=== PATIENT | male | born 1980 | race Caucasian/White ===

== ENCOUNTER → 2016-03-22 | Outpatient (REF) | payer OTHER ==
[~2016-03-22] MED LIST: ALBU17IN INH; CEPA5.4L2 MT; PANT40TA2 PO; RANI150T PO; TYLE500T78 PO; ZOFR20TA PO
[2016-03-22 13:02] LABS: BASO % 0.3 % (0.0-1.0); EOS # 0.1 K/mm3 (0.0-0.50); EOS % 0.7 % (0.0-3.0); LARGE UNSTAINED CELL # 0.1 K/mm3 (0.0-0.4); LARGE UNSTAINED CELL % 0.6 % (0.0-4.0); LYMPH # 1.3 K/mm3 (1.5-4.5); MEAN CORPUSCULAR HEMOGLOBIN 30.9 pg (27.0-33.0); MEAN CORPUSCULAR HGB CONC 35.2 g/dl (32.0-36.5); MEAN CORPUSCULAR VOLUME 87.7 fl (80.0-96.0); MONO # 0.7 K/mm3 (0.0-0.8); MONO % 3.8 % (0.0-5.0); NEUTROPHILS # 16.4 K/mm3 (1.8-7.7); NEUTROPHILS % 87.7 % (36.0-66.0); PLATELET COUNT, AUTOMATED 309 k/mm3 (150-450); RED CELL DISTRIBUTION WIDTH 12.8 % (11.5-14.5); WHITE BLOOD COUNT 18.7 K/mm3 (4.0-10.0)
[2016-03-22 13:21] LABS: ALBUMIN 4.7 GM/DL (3.2-5.2); ALBUMIN/GLOBULIN RATIO 1.57 (1.00-1.93); BILIRUBIN,TOTAL 0.7 MG/DL (0.2-1.0); CALCIUM LEVEL 9.2 MG/DL (8.5-10.1); CREATININE FOR GFR 1.48 MG/DL (0.70-1.30); GLOMERULAR FILTRATION RATE 57.9 (>60); POTASSIUM SERUM 3.9 MEQ/L (3.5-5.1); TOTAL PROTEIN 7.7 GM/DL (6.4-8.2)
== END ==
LOC: M LAB REF 12:45
PROVIDERS: ATTEND Surgery
DX: K29.20 Alcoholic gastritis without bleeding (principal)

== ENCOUNTER 2016-03-24 19:12 | Inpatient (IN) | payer OTHER ==
[~2016-03-24] VITALS: Ht 165.1 cm; Wt 78.0 kg
[2016-03-24] MEDS ORDERED: PANTOPRAZOLE 40MG INJ (PROTONIX) (C9113) As Ordered ONE (19:34)
[2016-03-24] MEDS ORDERED: PROMETHAZINE INJ 25 MG/ML VIAL (J2550) As Ordered ONE (19:34)
[2016-03-24 19:59] LABS: BASO # 0.1 K/mm3 (0.0-0.2); BASO % 0.4 % (0.0-1.0); EOS # 0.1 K/mm3 (0.0-0.50); EOS % 0.5 % (0.0-3.0); LARGE UNSTAINED CELL # 0.2 K/mm3 (0.0-0.4); LYMPH # 1.4 K/mm3 (1.5-4.5); LYMPH % 8.7 % (24.0-44.0); MEAN CORPUSCULAR HEMOGLOBIN 30.7 pg (27.0-33.0); MEAN CORPUSCULAR HGB CONC 35.6 g/dl (32.0-36.5); MEAN CORPUSCULAR VOLUME 86.3 fl (80.0-96.0); MONO # 0.8 K/mm3 (0.0-0.8); MONO % 4.6 % (0.0-5.0); NEUTROPHILS # 14.1 K/mm3 (1.8-7.7); NEUTROPHILS % 84.9 % (36.0-66.0); PLATELET COUNT, AUTOMATED 299 k/mm3 (150-450); RED CELL DISTRIBUTION WIDTH 12.6 % (11.5-14.5); WHITE BLOOD COUNT 16.6 K/mm3 (4.0-10.0)
[2016-03-24 20:18] LABS: ALBUMIN 4.6 GM/DL (3.2-5.2); ALBUMIN/GLOBULIN RATIO 1.48 (1.00-1.93); ALKALINE PHOSPHATASE 80 U/L (45-117); ALT/SGPT 52 U/L (12-78); ANION GAP 14 MEQ/L (8-16); AST/SGOT 19 U/L (15-37); BILIRUBIN,DIRECT 0.3 MG/DL (0.0-0.2); BLOOD UREA NITROGEN 18 MG/DL (7-18); CALCIUM LEVEL 9.1 MG/DL (8.5-10.1); CARBON DIOXIDE LEVEL 24 MEQ/L (21-32); CHLORIDE LEVEL 106 MEQ/L (98-107); CREATININE FOR GFR 1.37 MG/DL (0.70-1.30); GLOMERULAR FILTRATION RATE > 60.0 (>60); GLUCOSE, FASTING 151 MG/DL (70-105); SODIUM LEVEL 144 MEQ/L (136-145); TOTAL PROTEIN 7.7 GM/DL (6.4-8.2)
[2016-03-24 21:23] LABS: CALCIUM OXALATE CRYSTALS SMALL
[2016-03-24] MEDS ORDERED: SUCRALFATE 1 GM TAB As Ordered ONE (21:47)
[2016-03-24] MEDS ORDERED: GASTROGRAFIN SOLUTION 30ML (Q9963) As Ordered ONE (22:07)
[2016-03-24] MEDS ORDERED: CHLORASEPTIC SPRAY MT ONE (22:15)
[2016-03-24] MEDS ORDERED: METOCLOPRAMIDE INJ 10MG/2ML VIAL (J2765) As Ordered ONE (23:11)
[2016-03-24] MEDS ORDERED: ISOVUE-370 76% 100ML VIAL (Q9967) As Ordered ONE (23:50)
--- NOTE | 2016-03-25 00:40 | REPUSA ---
CT of the abdomen and pelvis with contrast Clinical statement: vomiting blood. Technique: Multiple axial CT images were obtained from the base of the lungs through the floor of the pelvis utilizing 5 mm axial slices after administration of oral and nonionic intravenous contrast. C oronal and sagittal reconstructions were also obtained. No comparison is available. Findings: Chest: The visualized lung bases are clear. Abdomen: The spleen, pancreas, kidneys, gallbladder, and adrenal glands are unremarkable. Diffuse low attenuation of the liver is appreciated. The aorta is within normal limits. There is no evidence of abdominal lymphadenopathy or ascites. Pelvis: The bowel is unremarkable, with no obstructive or inflammatory changes. The appendix is daniel l. The urinary bladder is within normal limits. The other pelvic structures appear grossly intact. Th ere is no evidence of pelvic lymphadenopathy or ascites. Bones: There are no suspicious osseous abnormalities seen. Impression: No acute abnormality. Fatty infiltration of the liver.
[2016-03-25] MEDS ORDERED: ONDANSETRON 4MG/2ML VIAL (J2405) IV PRN ×2 (02:30→12:00)
[2016-03-25] MEDS ORDERED: NS 1,000 ML IV SCH (02:45)
[2016-03-25] MEDS ORDERED: TYLE500T78 PO (02:51)
[2016-03-25] MEDS ORDERED: RANI150T PO (02:51)
[2016-03-25] MEDS ORDERED: ALBU17IN INH (02:51)
[2016-03-25] MEDS ORDERED: ZOFR20TA PO (02:51)
[2016-03-25] MEDS ORDERED: LIDOCAINE VISCOUS 2% SOLN 15ML UDC As Ordered ONE (03:32)
--- NOTE | 2016-03-25 04:10 | HPE ---
DATE OF ADMISSION: 03/25/2016 PRIMARY CARE PROVIDER: Dr. Díaz. CHIEF COMPLAINT: Hematemesis. HISTORY OF PRESENT ILLNESS: Mr. Meier is a 35-year-old male with past medical history of upper gastrointestinal (GI) bleed, occasional alcohol use, who presented to the emergency department (ED) [facility] with complaint of hematemesis in the last 2 days. Episode started 2 days ago while he was eating. He then immediately vomited his food and also saw spoons of blood mixed. He then presented to urgent care and because he did not mention any hematemesis, he was then given Zofran and sent home. However, at 5 p.m. yesterday afternoon while eating chicken noodle soup, he started having coffee-ground emesis that filled up the whole toilet bowl. He states that the episode was going on straight for 4-5 hours. Associated with dizziness, lightheadedness, had one syncopal episode 3 days ago, abdominal pain. No chest pain, palpitations, diarrhea, constipation. Bowel movements have been normal. Takes 1-2 tablets of Aleve every day for his sore throat. Had similar episode approximately a year ago. At that time, states that he was drinking too much. He then presented to [facility] and was treated with omeprazole and intravenous (IV) fluid and discharged home. Never saw a copy center associate. On average, drinks approximately 6-7 cans of beer every 2 weeks. In the ED, received 2 liters bolus, promethazine 25 mg times one, Protonix 80 times one, Carafate 1 gram, Cepacol spray, metoclopramide 10 mg times one. PAST MEDICAL HISTORY: 1. Asthma. 2. Depression. 3. Schizophrenia. 4. Anxiety. 5. GI bleed. PAST SURGICAL HISTORY: Bilateral inguinal hernia repair. ALLERGIES: MUSHROOMS and MEASLES, MUMPS, RUBELLA VACCINE, reaction is coma. HOME MEDICATIONS: - Tylenol 1000 mg every 6 hours as needed - Ventolin two puffs inhaled every 4 hours as needed - Zofran 4 mg every 8 hours - ranitidine 150 mg by mouth daily SOCIAL HISTORY: Patient is an ex-smoker for a total of 7 years. Quit last year. Alcohol drinks up to seven cans of beer every 2 weeks. Uses marijuana. Currently lives at home. No pets. Attending school. FAMILY HISTORY: Mother with diabetes, hypothyroidism, hypertension. Father with myocardial infarction ([place]), skin cancer. REVIEW OF SYSTEMS: CONSTITUTIONAL: Decreased appetite due to nausea. Intermittent subjective fevers, chills. No rigors, weight changes. HEENT: Positive for lightheadedness, dizziness. No problems with difficulty with speech and swallow. CARDIOVASCULAR: Denies chest pain, paroxysmal nocturnal dyspnea, pillow orthopnea, lower extremity edema. PULMONARY: Positive for shortness of breath after excessive amount of vomiting. No hemoptysis. Has been coughing more clear phlegm. GASTROINTESTINAL: Positive for GI bleed as mentioned above, abdominal pain. GENITOURINARY: No urinary complaints or hematuria. MUSCULOSKELETAL: No bone, muscle, joint pain. NEUROLOGICAL: No paralysis, paresthesia, headaches. ENDOCRINE: Negative for diabetes, or thyroid disease. LYMPHATICS: No lumps, bumps, or swelling anywhere in neck, axilla, or groin. HEMATOLOGY: No abnormal bleeding or bruising. PSYCHIATRIC: Positive for anxiety, depression, schizophrenia. PHYSICAL EXAMINATION: VITAL SIGNS: Blood pressure 142/94, heart rate 93, respiration rate 18, pulse oximetry 100% on room air, temperature 98.5. Body mass index (BMI) is 30. GENERAL: The patient is lying in bed, comfortable, no acute distress. Alert, awake, oriented times three, pleasant and cooperative, no acute respiratory or psychiatric distress. HEENT: Normocephalic, atraumatic. Moist oral mucosa. NECK: Supple. Trachea midline. No jugular venous distention (JVD). CHEST: Symmetric chest rise. No accessory muscle use. Breath sounds clear to auscultation bilaterally. HEART: Regular rate and rhythm, S1, S2 present. ABDOMEN: Mildly tender to palpation in right lower quadrant. No guarding. No rebound. No peritoneal signs. BACK: No costovertebral angle (CVA) tenderness. : Rectal exam without external hemorrhoids. Hemoccult positive. EXTREMITIES: No pedal edema. Pedal pulses present bilaterally. PSYCHIATRIC: Pleasant, cooperative. LABORATORY DATA: WBC 16.6, hemoglobin 14.6, hematocrit 41.6 decreased to 13.3, MCV is 86.3, platelets 299. Sodium 144, potassium 3, chloride 106, carbon dioxide 24, BUN 18, creatinine 1.37, glucose 151, calcium 9.1, total bilirubin 1, AST 19, ALT 52, alkaline phosphatase 80, lipase 74. Urinalysis 2+ protein, 2+ ketones, [address] abdomen and pelvis with contrast unremarkable bowel, no obstruction or inflammatory changes. Normal appendix. No pelvic lymphadenopathy or ascites. No suspicious osseous abnormalities. No acute changes. Positive for fatty infiltration of the liver. IMPRESSION AND PLAN: Mr. Meier is a 35-year-old male with a past medical history of gastrointestinal (GI) bleed, presented with complaint of hematemesis and coffee-ground emesis. 1. Upper GI bleed. Likely secondary to alcohol use and nonsteroidal antiinflammatory drug (NSAID) use. Check coagulation studies. Trend hemoglobin , hematocrit every 6 hours. Start Protonix by mouth twice a day. Continue supportive symptom control with Zofran every 6 hours as needed. Patient will be made nothing by mouth and start intravenous (IV) fluid hydration at 100 mL/h. Will consult gastroenterology in the morning. 2. Leukocytosis. Likely secondary to inflammatory response from GI bleed. Continue to monitor for now. Recheck blood work in the morning. 3. Anemia. Secondary to GI bleed as mentioned above. Continue to trend the hemoglobin, hematocrit. Transfuse as needed. Has consent in place. 4. Acute kidney injury (VIVIAN). Likely secondary to blood loss and NSAID use. Hold NSAID medications. IV fluid hydration. 5. Hypokalemia. Check magnesium level and replete with IV potassium supplementation. 6. Abnormal CT. The CT shows evidence of fatty infiltration of the liver. Will benefit from weight loss to prevent further progression of liver disease in the future. 7. Deep venous thrombosis (DVT) prophylaxis. Sequential compression devices (SCDs), thromboembolism deterrents (TEDs). No pharmacological intervention secondary to active GI bleed. DISPOSITION: Due to the patient's condition, we expect his stay to be greater than two midnights. My preceptor for this patient encounter was Dr. Rian Carr. The preceptor was physically present in the building during the encounter and was fully available as needed. All aspects of the patient interview, examination, medical decision making process, and medical care plan development were reviewed and approved by the preceptor. The preceptor is aware and concurs with the plan as stated in the body of this note and will attest to such by his/her co-signature. CECI
--- NOTE | 2016-03-25 04:23 | EDDOCDS ---
Nurse's Notes [facility] Name: Derek Meier Age: 35 yrs Sex: Male : 1980 Arrival Date: 03/24/2016 Time: 19:12 Bed 15 Private MD: NONE Diagnosis: Gastrointestinal hemorrhage, unspecified Presentation: 03/24 19:18 Presenting complaint: EMS states: pt been vomiting dark and red blood since 5 pm. Mom koOliverio went over to check on pt and he was found in the bathroom hugging the toilet unable to get up and call anyone. Pt saw his primary 2 days ago for the same thing and was given Zofran with relief til tonight. Suicide/Homicide risk assessment- the patient denies having any suicidal and/or homicidal ideations and does not present with any other emotional, behavioral or mental health complaints. 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 Transition of care: patient was not received from another setting of care. Care prior to arrival: See EMS report. Medications administered prior to arrival: Zofran 8 mg Saline lock initiated. 19:18 Acuity: CARLOS Level 3 ko2 19:18 Method Of Arrival: Ambulance ko2 03/25 03:29 Adult Sepsis Screening: The patient does not have new or worsening altered mentation. ko2 Patient's respiratory rate is less than 22. Systolic blood pressure is greater than 100. Patient has a qSOFA score of 0- Negative Sepsis Screen. Triage Assessment: 03/24 19:27 General: Appears distressed, Behavior is cooperative. HIV screening NA for this visit ko2 Offered previously. The patient is triaged at the bedside. See Assessment in Nurses Notes section of ED record. Neurological: Level of Consciousness is awake, alert. Respiratory: Airway is patent. GI: Pt is actively vomiting. Derm: Skin is normal. Musculoskeletal: Range of motion intact in all extremities. Historical: - Allergies: mushrooms; MMR (Coma); - PMHx: Asthma; Depression; Schizophrenia; - PSHx: Hernia repair; - Social history: Smoking status: No barriers to communication noted, The patient speaks fluent Barbadian, Speaks appropriately for age. - Family history: Not pertinent. - : The pt / caregiver states he / she is not on anticoagulants. Home medication list is obtained from the patient. - Exposure Risk Screening:: None identified. Screenin:23 Screening information is obtained from the patient. Fall risk: No risks identified. ld5 Assistance ADL's: requires no assistance with activities of daily living. Abuse/DV Screen: The patient / caregiver reports he/she is: not in a situation that causes fear, pain or injury. Nutritional screening: No deficits noted. Advance Directives: There is no active DNR order. home support is adequate. Assessment: 19:27 General: See triage assesment. ko2 19:40 General: labs drawn for primary RN -- pt continues to be nauseated. RN to give meds.. ttb 19:50 General: Pt actively vomiting. Meds infusing. Call rios placed within reach. Pt unable ld5 to tolerate a full assessment at this time. Will continue to monitor. Respiratory: Airway is patent Respiratory effort is even, unlabored. GI: Reports. 20:22 General: Pt resting in bed with eyes closed. Family member at bedside. Fluids infusing. ld5 Will continue to monitor. 20:55 General: Pt reports decreased nausea. Reports pain to abdomen and throat. Pt requesting ld5 ice chips or water. This discussed with provider and NPO enforced at this time. Fluids infusing. Pt aware of need for urine specimen but states he has been having urinary issues for a year. Pt reports urinary frequency, "squirts all over the place", dark urine. Pt states "And I'm not sexually active so you can rule out STDs." Provider made aware. POC discussed with pt and family. Will continue to monitor. 21:52 General: Pt medicated per orders. Reports throat is "very sore". Fluids change to ld5 bolus. Will continue to monitor. 22:30 General: Pt given throat spray and contrast with instructions. Will continue to monitor.ld5 23:19 General: Smells of In to assess pt's tolerance of contrast. Refuses to drink the ld5 contrast due to pain in throat. Pt also requesting nausea medication. Provider made aware of pt's refusal of oral contrast and nausea. Pt medicated per orders. CT scan to be just IV contrast per provider. 23:21 General: Pt reports 8/10 abdominal pain and "my throat is definitely a 12". ld5 03/25 00:03 General: Pt returned from CT. Tolerated well. Requesting popsicles. NPO status pending ld5 CT results explained to pt. Call rios within reach and lights dimmed for comfort. 00:49 General: Pt sleeping. No apparent distress. Awaiting CT results. Will continue to ld5 monitor. 01:20 General: Pt requesting popsicles again. And again pt was made aware of NPO status ld5 pending CT results. 02:11 General: Hospitalist in to speak with pt. ld5 02:50 General: Pt laying comfortably in bed. No apparent distress. Aware of plan for ld5 admission. Will continue to monitor. 03:50 General: Appears in no apparent distress, comfortable. Respiratory: No deficits noted. ko2 Derm: Skin is normal. 03:55 GI: Bowel sounds present X 4 quads. Abd is soft. ko2 Vital Signs: 03/24 19:30 BP 142 / 94; Pulse 93; Resp 18; Temp 98.5; Pulse Ox 100% ; Weight 81.65 kg; Height 5 ko2 ft. 5 in. (165.10 cm); 23:14 BP 138 / 86 (auto/); Pulse 90; Resp 16; Temp 98.1; Pulse Ox 96% on R/A; Pain 8/10; ld5 03/25 02:47 BP 131 / 80 (auto/); Pulse 90; Resp 16; Temp 98; Pulse Ox 95% on R/A; ld5 03:28 BP 128 / 82; Pulse 88; Resp 16; Temp 98.2; Pulse Ox 96% ; Pain 3/10; ko2 03/24 19:30 Body Mass Index 29.95 (81.65 kg, 165.10 cm) ko2 Vitals: 03:28 Log In Time N/A - ambulance arrival. ko2 ED Course: 03/24 19:13 Patient visited by Caity August, Tafe Teacher. ml3 19:13 Patient moved to Waiting ml3 19:14 NONE is Private Physician. ml3 19:18 Patient moved to 15 ml3 19:20 Triage Initiated ko2 19:23 [facility]ocely[facility] Le[facility]. le 19:26 Patient visited by Jocelyne Leyva FNP. le 19:26 Patient visited by Jocelyne Leyva FNP. le 19:40 Basic Metabolic Profile Sent. ttb 19:40 CBC with Diff Sent. ttb 19:40 Lipase Sent. ttb 19:40 Liver Profile Sent. ttb 19:40 Type & Screen Sent. ttb 19:40 Maintain field IV. Dressing intact. Good blood return noted. Site clean & dry. Gauge & ttb site: 18LAC. Labs drawn. (by ED staff). 19:49 [facility] Payment Agreement was scanned into [employer] and attached to record. jp5 19:51 Patient visited by Elle Isabel RN. ld5 20:23 Patient visited by Elle Isabel RN. ld5 20:23 The patient / caregiver is instructed regarding the plan of care and ED course. ld5 Accompanied by Family Member, Patient has correct armband on for positive identification. Placed in gown. Bed in low position. Call light in reach. 21:15 Patient visited by Elle Isabel RN. ld5 21:53 Patient visited by Elle Isabel RN. ld5 22:44 Patient visited by Elle Isabel RN. ld5 23:21 Patient visited by Elle Isabel RN. ld5 03/25 00:04 Patient visited by Elle Isabel RN. ld5 00:49 Patient visited by Elle Isabel RN. ld5 00:54 CT ABD & PELVIS: IV and Oral Contrast Returned. EDMS 01:40 Patient visited by Elle Isabel RN. ld5 01:41 Patient visited by Elle Isabel RN. ld5 02:11 Patient visited by Elle Isabel RN. ld5 02:52 Patient visited by Elle Isabel RN. ld5 02:52 Rian Carr MD is Hospitalizing Provider. cs11 02:52 Sanjeev Brown DO is Attending Physician. cs11 03:29 No procedures done that require assistance. ko2 Administered Medications: 03/24 19:31 Drug: NS 0.9% 1000 ml [sodium chloride 0.9 % intravenous solution] Route: IV; Rate: ko2 bolus; Site: left antecubital; 21:12 Follow up: IV Status: Completed infusion; IV Intake: 1000ml ld5 19:47 Drug: pantoprazole 80 mg [pantoprazole 40 mg intravenous solution] Route: IV; Rate: ko2 bolus; Site: left antecubital; 19:47 Drug: Promethazine 25 mg [promethazine 25 mg/mL injection solution (1 mL)] Route: IVP; ko2 Site: left antecubital; 21:12 Follow up: Response: Nausea is decreased ld5 20:53 Drug: NS 0.9% 1000 ml [sodium chloride 0.9 % intravenous solution] Route: IV; Rate: 100 ld5 mL/hr; Site: left antecubital; 21:50 Follow up: Rate change 1000 mL/hr ld5 21:50 Drug: NS 0.9% 1000 ml [sodium chloride 0.9 % intravenous solution] Route: IV; Rate: ld5 bolus; Site: left antecubital; 23:32 Follow up: IV Status: Completed infusion; IV Intake: 1000ml ld5 21:51 Drug: Sucralfate 1 grams [sucralfate 1 gram tablet (1 tabs)] Route: PO; ld5 22:30 Drug: Cepacol Dual Relief [place] 5 %-33 % 1 applic Route: Mucous Membrane; ld5 22:30 Drug: Diatrizoate Meglumine & Sodium 10 ml [diatrizoate meglumine and diat.sodium 66 ld5 %-10 % oral solution (10 mL)] Route: PO; 23:11 Not Given (Patient Refused): Diatrizoate Meglumine & Sodium Liquid 10 ml PO once; mix ld5 in 290cc of water 23:18 Drug: Metoclopramide 10 mg [metoclopramide 5 mg/mL injection solution] Route: IV; Rate: ld5 40 mg/hr; Infused Over: 15 mins; Site: left antecubital; Intake: 21:12 IV: 1000.00ml; Total: 1000.00ml. ld5 23:32 IV: 1000.00ml; Total: 2000.00ml. ld5 Order Results: Lab Order: Basic Metabolic Profile; SPEC'M 03/24/16 19:36 Test: GLUCOSE, FASTING; Value: 151; Range: 70-105; Abnormal: Above high normal; Units: MG/DL; Status: F Test: BLOOD UREA NITROGEN; Value: 18; Range: 7-18; Units: MG/DL; Status: F Test: CREATININE FOR GFR; Value: 1.37; Range: 0.70-1.30; Abnormal: Above high normal; Units: MG/DL; Status: F Test: GLOMERULAR FILTRATION RATE; Value: > 60.0; Range: >60; Status: F Test: SODIUM LEVEL; Value: 144; Range: 136-145; Units: MEQ/L; Status: F Test: POTASSIUM SERUM; Value: 3.0; Range: 3.5-5.1; Units: MEQ/L; Status: F Test: CHLORIDE LEVEL; Value: 106; Range: 98-107; Units: MEQ/L; Status: F Test: CARBON DIOXIDE LEVEL; Value: 24; Range: 21-32; Units: MEQ/L; Status: F Test: ANION GAP; Value: 14; Range: 8-16; Units: MEQ/L; Status: F Test: CALCIUM LEVEL; Value: 9.1; Range: 8.5-10.1; Units: MG/DL; Status: F Test Note: ; Units are mL/min/1.73 m2 Chronic Kidney Disease Staging per NKF: Stage I & II GFR >=60 Normal to Mildly Decreased Stage III GFR 30-59 Moderately Decreased Stage IV GFR 15-29 Severely Decreased Stage V GFR <15 Very Little GFR Left ESRD GFR <15 on INVESTIGATIVE SHOPPER Lab Order: CBC with Diff; SPEC'M 03/24/16 19:36 Test: WHITE BLOOD COUNT; Value: 16.6; Range: 4.0-10.0; Abnormal: Above high normal; Units: K/mm3; Status: F Test: RED BLOOD COUNT; Value: 4.83; Range: 4.30-6.10; Units: M/mm3; Status: F Test: HEMOGLOBIN; Value: 14.8; Range: 14.0-18.0; Units: g/dl; Status: F Test: HEMATOCRIT; Value: 41.6; Range: 42.0-52.0; Abnormal: Below low normal; Units: %; Status: F Test: MEAN CORPUSCULAR VOLUME; Value: 86.3; Range: 80.0-96.0; Units: fl; Status: F Test: MEAN CORPUSCULAR HEMOGLOBIN; Value: 30.7; Range: 27.0-33.0; Units: pg; Status: F Test: MEAN CORPUSCULAR HGB CONC; Value: 35.6; Range: 32.0-36.5; Units: g/dl; Status: F Test: RED CELL DISTRIBUTION WIDTH; Value: 12.6; Range: 11.5-14.5; Units: %; Status: F Test: PLATELET COUNT, AUTOMATED; Value: 299; Range: 150-450; Units: k/mm3; Status: F Test: NEUTROPHILS %; Value: 84.9; Range: 36.0-66.0; Abnormal: Above high normal; Units: %; Status: F Test: LYMPH %; Value: 8.7; Range: 24.0-44.0; Abnormal: Below low normal; Units: %; Status: F Test: MONO %; Value: 4.6; Range: 0.0-5.0; Units: %; Status: F Test: EOS %; Value: 0.5; Range: 0.0-3.0; Units: %; Status: F Test: BASO %; Value: 0.4; Range: 0.0-1.0; Units: %; Status: F Test: LARGE UNSTAINED CELL %; Value: 1.0; Range: 0.0-4.0; Units: %; Status: F Test: NEUTROPHILS #; Value: 14.1; Range: 1.8-7.7; Abnormal: Above high normal; Units: K/mm3; Status: F Test: LYMPH #; Value: 1.4; Range: 1.5-4.5; Abnormal: Below low normal; Units: K/mm3; Status: F Test: MONO #; Value: 0.8; Range: 0.0-0.8; Units: K/mm3; Status: F Test: EOS #; Value: 0.1; Range: 0.0-0.50; Units: K/mm3; Status: F Test: BASO #; Value: 0.1; Range: 0.0-0.2; Units: K/mm3; Status: F Test: LARGE UNSTAINED CELL #; Value: 0.2; Range: 0.0-0.4; Units: K/mm3; Status: F Lab Order: Lipase; SPEC' 03/24/16 19:36 Test: LIPASE; Value: 74; Range: 73-393; Units: U/L; Status: F Lab Order: Liver Profile; SPEC' 03/24/16 19:36 Test: AST/SGOT; Value: 19; Range: 15-37; Units: U/L; Status: F Test: ALT/SGPT; Value: 52; Range: 12-78; Units: U/L; Status: F Test: ALKALINE PHOSPHATASE; Value: 80; Range: 45-117; Units: U/L; Status: F Test: BILIRUBIN,TOTAL; Value: 1.0; Range: 0.2-1.0; Units: MG/DL; Status: F Test: BILIRUBIN,DIRECT; Value: 0.3; Range: 0.0-0.2; Abnormal: Above high normal; Units: MG/DL; Status: F Test: TOTAL PROTEIN; Value: 7.7; Range: 6.4-8.2; Units: GM/DL; Status: F Test: ALBUMIN; Value: 4.6; Range: 3.2-5.2; Units: GM/DL; Status: F Test: ALBUMIN/GLOBULIN RATIO; Value: 1.48; Range: 1.00-1.93; Status: F Lab Order: Type & Screen; SPEC'M 03/24/16 19:36 Test: BLOOD TYPE; Value: B POS; Status: F Test: AB SCREEN (INDIRECT JOSIANE)GEL; Value: NEGATIVE; Status: F Lab Order: Urinalysis; SPEC'M 03/24/16 19:36 Test: APPEARANCE, URINE; Value: CLEAR; Range: CLEAR; Status: F Test: COLOR, URINE; Value: YELLOW; Range: YELLOW; Status: F Test: PH,URINE; Value: 6.0; Range: 5.0-9.0; Units: UNITS; Status: F Test: SPECIFIC GRAVITY URINE AUTO; Value: 1.033; Range: 1.002-1.035; Status: F Test: PROTEIN, URINE AUTO; Value: 2+; Range: NEGATIVE; Abnormal: Above high normal; Units: mg/dL; Status: F Test: GLUCOSE, URINE (UA) AUTO; Value: NEGATIVE; Range: NEGATIVE; Units: mg/dL; Status: F Test: KETONE, URINE AUTO; Value: 2+; Range: NEGATIVE; Abnormal: Above high normal; Units: mg/dL; Status: F Test: UROBILINOGEN, URINE AUTO; Value: 4.0; Range: 0.0-2.0; Abnormal: Above high normal; Units: mg/dL; Status: F Test: BILIRUBIN, URINE AUTO; Value: NEGATIVE; Range: NEGATIVE; Status: F Test: NITRITE, URINE AUTO; Value: NEGATIVE; Range: NEGATIVE; Status: F Test: LEUKOCYTE ESTERASE, URINE AUTO; Value: NEGATIVE; Range: NEGATIVE; Status: F Test: BLOOD, URINE BLOOD; Value: NEGATIVE; Range: NEGATIVE; Status: F Test: WBC, URINE AUTO; Value: 3; Range: 0-3; Units: /HPF; Status: F Test: RBC, URINE AUTO; Value: 2; Range: 0-3; Units: /HPF; Status: F Test: BACTERIA, URINE AUTO; Value: NEGATIVE; Range: NEGATIVE; Status: F Test: SQUAMOUS EPITHELIAL CELL UR AU; Value: 0; Range: 0-6; Units: /HPF; Status: F Test: MUCUS, URINE; Value: SMALL; Range: NEGATIVE; Status: F Test: HYALINE CAST, URINE AUTO; Value: 0; Range: 0-1; Units: /LPF; Status: F Test: CALCIUM OXALATE CRYSTALS; Value: SMALL; Range: NONE; Status: F Lab Order: HEMOGLOBIN & HEMATOCRIT; SPEC'M 03/24/16 23:54 Test: HEMOGLOBIN; Value: 13.3; Range: 14.0-18.0; Abnormal: Below low normal; Units: g/dl; Status: F Test: HEMATOCRIT; Value: 39.4; Range: 42.0-52.0; Abnormal: Below low normal; Units: %; Status: F Lab Order: PROTHROMBIN TIME PROFILE\\E\\INR; SPEC'M 03/24/16 19:36 Test: PROTHROMBIN TIME; Value: 13.3; Range: 12.3-14.5; Units: SECONDS; Status: F Test: INR; Value: 1.00; Status: F Test Note: ; THERAPUTIC HUMAN INR VALUES INDICATIONS NORMAL RANGES PROPHYLAXIS/TREATMENT OF: VENOUS THROMBOSIS 2.0-3.0 PULMONARY EMBOLISM 2.0-3.0 PREVENTION OF SYSTEMIC EMBOLISM FROM: TISSUE HEART VALVES 2.0-3.0 ACUTE MYOCARDIAL INFARCTION 2.0-3.0 VALVULAR HEART DISEASE 2.0-3.0 ATRIAL FIBRILLATION 2.0-3.0 MECHANICAL VALVES(HIGH RISK) 2.5-3.5 RECURRENT MYOCARDIAL INFARCTION 2.5-3.5 Radiology Order: CT ABD & PELVIS: IV and Oral Contrast Test: CT ABD & PELVIS: IV and Oral Contrast REASON FOR EXAMINATION: vomiting blood;Abd. Pain - Generalized, Nn-focal Exam; ; CT of the abdomen and pelvis with contrast; Clinical statement: vomiting blood.; Technique: Multiple axial CT images were obtained from the base of the lungs through the floor of the; pelvis utilizing 5 mm axial slices after administration of oral and nonionic intravenous contrast. C; oronal and sagittal reconstructions were also obtained.; No comparison is available.; Findings:; Chest: The visualized lung bases are clear.; Abdomen: The spleen, pancreas, kidneys, gallbladder, and adrenal glands are unremarkable. Diffuse low; attenuation of the liver is appreciated. The aorta is within normal limits. There is no evidence of; abdominal lymphadenopathy or ascites.; Pelvis: The bowel is unremarkable, with no obstructive or inflammatory changes. The appendix is daniel; l. The urinary bladder is within normal limits. The other pelvic structures appear grossly intact. Th; ere is no evidence of pelvic lymphadenopathy or ascites.; Bones: There are no suspicious osseous abnormalities seen.; Impression: No acute abnormality. Fatty infiltration of the liver.; ; Outcome: 03/25 02:52 Decision to Hospitalize by Provider. cs11 03:54 Discharge Assessment: Patient awake, alert and oriented x 3. No cognitive and/or ko2 functional deficits noted. Patient verbalized understanding of disposition instructions. patient administered narcotics - no. The following High Risk Discharge criteria are identified: None. Admitted to Med/Surg accompanied by tech, via stretcher, with chart. Condition: stable. CT Study completed. Property :Personal belongings accompany Pt. 04:07 Admission hand-off: Report Faxed Fax receipt verified by [facility]. ko2 04:23 Patient left the ED. ko2 Signatures: Dispatcher [employer] EDMS Caity August, Tafe Teacher Unit ml3 Jocelyne Leyva, Elle Garcia,RN RN ld5 Sanjeev Brown DO DO cs11 Pearl Morel RN RN ttb Ogden, Kari, RN RN ko2 Rafaela Wilson jp5 MTDD
--- NOTE | 2016-03-25 04:23 | EDDOCDS ---
Physician Documentation [facility] Name: Derek Meier Age: 35 yrs Sex: Male : 1980 Arrival Date: 03/24/2016 Time: 19:12 Bed 15 Private MD: NONE Disposition: 03/25/16 02:52 Hospitalization ordered by Rian Carr for Inpatient Admission. Preliminary diagnosis is Gastrointestinal hemorrhage, unspecified. - Bed requested for [address] [place]. - Status is Inpatient Admission. ko2 - Condition is Stable. - Problem is new. - Symptoms are unchanged. Historical: - Allergies: mushrooms; MMR (Coma); - PMHx: Asthma; Depression; Schizophrenia; - PSHx: Hernia repair; - Social history: Smoking status: No barriers to communication noted, The patient speaks fluent Hebrew, Speaks appropriately for age. - Family history: Not pertinent. - : The pt / caregiver states he / she is not on anticoagulants. Home medication list is obtained from the patient. - Exposure Risk Screening:: None identified. Vital Signs: 03/24 19:30 BP 142 / 94; Pulse 93; Resp 18; Temp 98.5; Pulse Ox 100% ; Weight 81.65 kg / 180.01 ko2 lbs; Height 5 ft. 5 in. (165.10 cm); 23:14 BP 138 / 86 (auto/); Pulse 90; Resp 16; Temp 98.1; Pulse Ox 96% on R/A; Pain 8/10; ld5 03/25 02:47 BP 131 / 80 (auto/); Pulse 90; Resp 16; Temp 98; Pulse Ox 95% on R/A; ld5 03:28 BP 128 / 82; Pulse 88; Resp 16; Temp 98.2; Pulse Ox 96% ; Pain 3/10; ko2 03/24 19:30 Body Mass Index 29.95 (81.65 kg, 165.10 cm) ko2 MDM: 03/24 19:25 NS 0.9% 1000 ml IV at bolus once ordered. le 19:25 NS 0.9% 1000 ml IV at 100 mL/hr continuous ordered. le 19:25 IV Saline Lock ordered. le 19:25 Undress patient appropriately for examination ordered. le 19:25 pantoprazole 80 mg IV at bolus once ordered. le 19:26 Promethazine 25 mg IVP once; dilute and administer 30-60 minutes ordered. le 19:26 Type & Screen Ordered. EDMS 19:27 Basic Metabolic Profile Ordered. EDMS 19:27 CBC with Diff Ordered. EDMS 19:27 Lipase Ordered. EDMS 19:27 Liver Profile Ordered. EDMS 19:27 Urinalysis Ordered. EDMS 19:27 Abdomen, Flat\E\Upright,PA Chest Ordered. EDMS 19:27 NOTHING BY MOUTH+DIET ordered. EDMS 19:49 [facility] Payment Agreement was scanned into [employer] and attached to record. jp5 19:49 Financial registration complete. jp5 21:41 Basic Metabolic Profile Reviewed. le 21:41 CBC with Diff Reviewed. le 21:41 Liver Profile Reviewed. le 21:41 Urinalysis Reviewed. le 21:41 Lipase Reviewed. le 21:41 Type & Screen Reviewed. le 21:43 NS 0.9% 1000 ml IV at bolus once; 2nd liter please ordered. le 21:43 Fluid Challenge ordered. le 21:43 Sucralfate 1 grams PO once ordered. le 21:50 CT ABD & PELVIS: IV and Oral Contrast Ordered. EDMS 21:56 Cepacol Dual Relief [place] 5 %-33 % 1 applic Mucous Membrane once ordered. le 21:58 Diatrizoate Meglumine & Sodium Liquid 10 ml PO once; mix in 290cc of water ordered. ld5 21:58 Diatrizoate Meglumine & Sodium Liquid 10 ml PO once; mix in 290cc of water ordered. ld5 23:11 Metoclopramide 10 mg IV at 40 mg/hr once over 15 mins ordered. le 23:17 Redraw Labs ordered. le 23:18 Redraw Labs complete. ml3 23:20 HEMOGLOBIN & HEMATOCRIT Ordered. EDMS 03/25 00:46 HEMOGLOBIN & HEMATOCRIT Reviewed. cs11 01:24 CT ABD & PELVIS: IV and Oral Contrast Reviewed. cs11 01:28 BED REQUEST+ADM ordered. EDMS 02:32 NPO DIET ordered. EDMS 02:35 PROTHROMBIN TIME PROFILE\E\INR Ordered. EDMS 02:36 HEMOGLOBIN & HEMATOCRIT Ordered. EDMS 02:36 HEMOGLOBIN & HEMATOCRIT Ordered. EDMS 02:38 COMPLETE BLOOD COUNT Ordered. EDMS 02:39 RENAL PROFILE Ordered. EDMS 02:53 BED REQUEST+ADM ordered. EDMS 03:10 Admission / Observation Status ordered. EDMS 03:19 MAGNESIUM LEVEL Ordered. EDMS Administered Medications: 03/24 19:31 Drug: NS 0.9% 1000 ml [sodium chloride 0.9 % intravenous solution] Route: IV; Rate: ko2 bolus; Site: left antecubital; 21:12 Follow up: IV Status: Completed infusion; IV Intake: 1000ml ld5 19:47 Drug: pantoprazole 80 mg [pantoprazole 40 mg intravenous solution] Route: IV; Rate: ko2 bolus; Site: left antecubital; 19:47 Drug: Promethazine 25 mg [promethazine 25 mg/mL injection solution (1 mL)] Route: IVP; ko2 Site: left antecubital; 21:12 Follow up: Response: Nausea is decreased ld5 20:53 Drug: NS 0.9% 1000 ml [sodium chloride 0.9 % intravenous solution] Route: IV; Rate: 100 ld5 mL/hr; Site: left antecubital; 21:50 Follow up: Rate change 1000 mL/hr ld5 21:50 Drug: NS 0.9% 1000 ml [sodium chloride 0.9 % intravenous solution] Route: IV; Rate: ld5 bolus; Site: left antecubital; 23:32 Follow up: IV Status: Completed infusion; IV Intake: 1000ml ld5 21:51 Drug: Sucralfate 1 grams [sucralfate 1 gram tablet (1 tabs)] Route: PO; ld5 22:30 Drug: Cepacol Dual Relief [place] 5 %-33 % 1 applic Route: Mucous Membrane; ld5 22:30 Drug: Diatrizoate Meglumine & Sodium 10 ml [diatrizoate meglumine and diat.sodium 66 ld5 %-10 % oral solution (10 mL)] Route: PO; 23:11 Not Given (Patient Refused): Diatrizoate Meglumine & Sodium Liquid 10 ml PO once; mix ld5 in 290cc of water 23:18 Drug: Metoclopramide 10 mg [metoclopramide 5 mg/mL injection solution] Route: IV; Rate: ld5 40 mg/hr; Infused Over: 15 mins; Site: left antecubital; Signatures: Dispatcher [employer] EDMS Muna Duggan RN RN jan Lopresti, Mary-Elizabeth, Package Lift Operator Unit ml3 Jocelyne Leyva FNP FNP le Dickerson, Laura,RN RN ld5 Sanjeev Brown DO DO cs11 Alexandra Boyce,RN RN ko2 Rafaela Wilson jp5 The chart was reviewed and I authenticate all verbal orders and agree with the evaluation and treatment provided.Corrections: (The following items were deleted from the chart) 03/25 03:19 03:09 MAGNESIUM LEVEL ordered. EDMS EDMS 02:35 HEMOGLOBIN & HEMATOCRIT ordered. EDMS EDMS Attachments: 03/24 19:49 [facility] Payment Agreement jp5 MTDD
[2016-03-25 04:30] VITALS: BP_SYST 127; BP_SYST 135; BP_DIAS 64; BP_DIAS 87
[2016-03-25] MEDS: KCL 10MEQ IN 100ML SWI (KRUN) 10 MEQ in APPROPRIATE DILUENT 1 EA IV SCH ×6 (04:40→08:34)
[2016-03-25 06:00] VITALS: BP 140/72
[2016-03-25 06:03] LABS: MEAN CORPUSCULAR HEMOGLOBIN 29.9 pg (27.0-33.0); MEAN CORPUSCULAR VOLUME 88.1 fl (80.0-96.0); RED CELL DISTRIBUTION WIDTH 12.7 % (11.5-14.5); WHITE BLOOD COUNT 11.1 K/mm3 (4.0-10.0)
[2016-03-25 06:13] LABS: ALBUMIN 3.7 GM/DL (3.2-5.2); ANION GAP 8 MEQ/L (8-16); BLOOD UREA NITROGEN 16 MG/DL (7-18); CALCIUM LEVEL 8.1 MG/DL (8.5-10.1); CARBON DIOXIDE LEVEL 27 MEQ/L (21-32); CHLORIDE LEVEL 112 MEQ/L (98-107); GLOMERULAR FILTRATION RATE > 60.0 (>60); GLUCOSE, FASTING 94 MG/DL (70-105); MAGNESIUM LEVEL 1.9 MG/DL (1.8-2.4); PHOSPHORUS LEVEL 2.8 MG/DL (2.5-4.9); POTASSIUM SERUM 3.5 MEQ/L (3.5-5.1); SODIUM LEVEL 147 MEQ/L (136-145)
[2016-03-25] MEDS: CEPACOL LOZENGE PO PRN ×3 (08:39→17:49)
[2016-03-25] MEDS: PANTOPRAZOLE 40MG TAB (PROTONIX) PO SCH (09:00)
[2016-03-25] MEDS ORDERED: PANTOPRAZOLE 40MG INJ (PROTONIX) (C9113) IV SCH (09:00)
--- NOTE | 2016-03-25 10:44 | REP ---
Abdominal series: Three views. History: Hematemesis and abdominal pain. Comparison study is from May 27, 2015. Findings: Upright chest radiograph is normal. There is no evidence of infiltrate or free subdiaphragmatic air. Heart size is normal. Supine and erect views of the abdomen demonstrate a normal bowel gas pattern. No mass, organomegaly, or pathologic calcification is seen. Psoas margins and flank stripes are intact. No significant bony abnormality is seen. Impression: Negative abdominal series. Signed by Duncan Flores MD 03/25/2016 11:05 A
[2016-03-25] MEDS ORDERED: ALBUTEROL 90 MCG/ACT 8GM HFA INHALER INH PRN (11:30)
[2016-03-25] MEDS ORDERED: LIDOCAINE 2% INJ 100 MG/5 ML SDV (FOR ANES.) As Ordered ONE (11:37)
[2016-03-25] MEDS ORDERED: PROPOFOL 200 MG/20 ML VIAL As Ordered ONE (11:37)
--- NOTE | 2016-03-25 11:59 | ROOR ---
Patient Name: Derek Meier Procedure Date: 03/25/2016 10:43 AM Date of : 1980 Age: 35 Gender: Male Note Status: Finalized Procedure: Upper GI endoscopy Indications: Heartburn, Hematemesis, Nausea with vomiting Providers: Rian MENDES MD Referring MD: 2. Inpatient 2. Inpatient Requesting Provider: Medicines: Monitored Anesthesia Care Complications: No immediate complications. Procedure: Pre-Anesthesia Assessment: - The heart rate, respiratory rate, oxygen saturations, blood pressure, adequacy of pulmonary ventilation, and response to care were monitored throughout the procedure. The Endoscope was introduced through the mouth, and advanced to the second part of duodenum. The upper GI endoscopy was accomplished without difficulty. The patient tolerated the procedure well. Findings: Moderately severe esophagitis with no bleeding was found in the entire esophagus. Small Hiatal Hernia. The exam was otherwise without abnormality. Impression: - Moderately severe erosive reflux esophagitis. (mostly at GE junction and at cricopharyngeal area) - Small Hiatal Hernia. - The examination was otherwise normal. - No specimens collected. - (todays endoscopic exam, stable vitals without orthostasis and normal BUN suggest lack of significant upper bleed. Hematemesis was likely from esophagitis. I suspect his drop in Hb is mainly dilutional from IV fluids) Recommendation: - Use Protonix (pantoprazole) 40 mg PO daily x 3-4 months. - Use Zofran (ondansetron) 4 mg PO TID PRN x 1 week. - Clear liquid diet today then Soft diet - advance as tolerated. - Cepacol losenges or viscous lidocaine PRN painful swallowing/sore throat-prn Rian Mendes MD Rian MENDES MD 03/25/2016 11:58:18 AM This report has been signed electronically. Number of Addenda: 0 Note Initiated On: 03/25/2016 10:43 AM Estimated Blood Loss: Estimated blood loss: none.
[2016-03-25 12:00] VITALS: BP 146/102
[2016-03-25] MEDS ORDERED: LR 1,000 ML IV SCH (12:00)
[2016-03-25] MEDS ORDERED: fentaNYL 100 MCG/2 ML INJECTION (J3010) IV PRN (12:00)
--- NOTE | 2016-03-25 12:27 | IPN ---
DATE OF SERVICE: 03/25/2016 SUBJECTIVE: Patient seen and examined in the room today. Patient stated mentally, he cannot take this issue anymore and he wants the procedure to be done as soon as possible, otherwise his frustration level will just continue to rise. Patient started having hemoptysis in the past one to two days. The only thing he thinks may relate to his hemoptysis was severe vomiting after drinking alcohol four days ago. OBJECTIVE: VITAL SIGNS: Temperature 97,7, pulse 82, respirations 17, blood pressure 140/72, pulse oximetry 93% on room air. GENERAL: Irritated. Alert and oriented times three. HEENT: Normocephalic, atraumatic. Extraocular muscles grossly intact. CARDIOVASCULAR: Positive S1, S2. Regular rate. LUNGS: Clear to auscultation bilaterally. ABDOMEN: Mild tenderness to palpation. Soft. EXTREMITIES: No edema. No cyanosis. LABORATORY DATA: WBC 11.1, hemoglobin 12.6, hematocrit 37.1, platelet count 230. Sodium 147, potassium 3.5, chloride 112, carbon dioxide 27, BUN 16, creatinine 1.1, GFR greater than 60, fasting glucose 94, calcium 8.1, phosphorus 2.8, magnesium 1.9, albumin 3.7. IMAGING STUDIES: CT abdomen and pelvis with contrast showed no acute abnormalities. Fatty infiltrate of the liver. ASSESSMENT AND PLAN: 1. Upper gastrointestinal (GI) bleed. Patient's hemoglobin and hematocrit have been trending down slowly. At the time of admission, patient had a hemoglobin of 14.8 and hematocrit 41.6. Now, patient's hemoglobin is 12.6, hematocrit 37.1. I have consulted a gastroenterology specialist, Dr. Mendes. Patient has been nothing by mouth. Patient is on Protonix 40 mg intravenously (IV) every 12 hours. 2. Acute blood loss anemia. Patient is on supportive IV fluid. A gastroenterology specialist has been consulted. Will check hemoglobin and hematocrit every 6 hours. 3. Leukocytosis. Most likely secondary to acute physical stress; however, since admission, with conservative approach, patient's WBC has decreased from 16.6 to 11.1. 4. Hypokalemia. After potassium supplement, potassium improved from 3 to 3.5, which is within normal range. This patient has history of fatty infiltrate of the liver. 5. Schizophrenia/Anxiety/Depression. Patient's home medications are being reviewed and patient has not been on any antidepressants/antipsychotic medications. 6. Marijuana use. Patient uses marijuana daily. 7. Alcohol use. 8. Deep venous thrombosis (DVT) prophylaxis due to acute bleeding. Patient is on thromboembolitic deterrents (TEDs) and sequentials. No anticoagulant medication at this time.
[2016-03-25] MEDS ORDERED: ONDANSETRON 4 MG TAB (S0181) PO PRN (12:30)
[2016-03-25] MEDS: ACETAMINOPHEN TAB 650MG DOSE (2X325MG) PO PRN (13:51)
[2016-03-25 14:00] VITALS: BP 157/105
[2016-03-25 22:00] VITALS: BP 140/99
[2016-03-26] MEDS: ACETAMINOPHEN TAB 650MG DOSE (2X325MG) PO PRN (03:26)
[2016-03-26] MEDS: CEPACOL LOZENGE PO PRN ×2 (03:26→13:29)
[2016-03-26 06:46] LABS: MEAN CORPUSCULAR HEMOGLOBIN 31.4 pg (27.0-33.0); MEAN CORPUSCULAR HGB CONC 35.7 g/dl (32.0-36.5); MEAN CORPUSCULAR VOLUME 87.9 fl (80.0-96.0); RED CELL DISTRIBUTION WIDTH 12.7 % (11.5-14.5); WHITE BLOOD COUNT 6.8 K/mm3 (4.0-10.0)
[2016-03-26] MEDS: PANTOPRAZOLE 40MG TAB (PROTONIX) PO SCH (10:01)
[2016-03-26] MEDS ORDERED: PANT40TA2 PO ×2 (13:30→13:31)
[2016-03-26] MEDS ORDERED: ZOFR20TA PO (13:30)
[2016-03-26] MEDS ORDERED: CEPA5.4L2 MT (16:13)
--- NOTE | 2016-03-26 17:06 | DSES ---
DATE OF ADMISSION: 03/25/2016 DATE OF DISCHARGE: 03/26/2016 PRIMARY CARE PROVIDER: Dr. Díaz. PROCEDURES: Esophagogastroduodenoscopy. CONSULTANTS: Gastroenterology specialist, Dr. Mendes. COMPLICATIONS: None. ADMISSION/DISCHARGE DIAGNOSES: 1. Moderate-severe erosive reflux esophagitis. 2. Hiatal hernia. 3. Hemoptysis. 4. Acute blood loss anemia. 5. Hypokalemia. 6. Schizophrenia. 7. Anxiety/depression. 8. Marijuana use. HOSPITALIZATION COURSE: The patient is a 35-year-old male who presented to [facility] on 03/25/2016, for two days of hemolysis, and the was admitted to the hospital on the GI floor. The patient was placed nothing by mouth, intravenous (IV) fluids, and supervisor/port director, Dr. Mendes, was consulted. The patient had an upper endoscopy on 03/25/2016, and the result later came back positive for moderate-severe erosive reflux esophagitis. Per recommendation, the patient continued on Protonix 40 mg by mouth daily, and the patient's hemoglobin and hematocrit and vitals were being monitored. Additionally, the patient's hemoglobin and hematocrit have been stable. Vitals are within normal range. No recurrence of the hemoptysis. On 03/26/2016, the patient was determined medically stable for discharge, with recommendation to followup with primary care provider in 1-2 weeks. The patient is recommended to take Protonix 40 mg by mouth daily for 3-4 months, and the patient should continue to use his Zofran 4 mg by mouth three times a day for one week. The patient should start on a soft diet and advance as tolerated. OBJECTIVE: VITAL SIGNS: Temperature is 99.2, pulse is 90, respirations 18, and blood pressure 140/99. Pulse oximetry is 96% on room air. LABORATORY DATA: WBC is 6.8, hemoglobin 13.6, hematocrit 38.2, platelet count 235. Sodium is 147, potassium 3.5, chloride 112, carbon dioxide 27, BUN 16, creatinine 1.1, GFR greater than 60, fasting glucose 96, calcium 8.1, phosphorus 2.8, magnesium 1.9, albumin 3.7. IMAGING: CT of the abdomen and pelvis without contrast showed no acute abnormalities. Fatty infiltrate of the liver. Abdominal x-ray showed negative abdominal series. Upper endoscopy: Moderate-severe erosive reflux esophagitis. Small hiatal hernia. DISCHARGE INSTRUCTIONS: Discontinue lines. Discharge home. Activity as tolerated. Soft diet first, then advance as tolerated. The patient should continue taking Protonix 40 mg by mouth daily for 3-4 months. The patient should use the Zofran 4 mg by mouth three times a day as needed for one week. The patient should followup with his primary care provider within 1-2 weeks. Lozenge mouth wash as needed for sore throat. DISCHARGE CONDITION: Stable. DISCHARGE MEDICATIONS: - Cepacol lozenge mouth wash daily as needed for sore throat - Protonix 40 mg by mouth daily for three months - Tylenol 1000 mg by mouth every six hours as needed - Ventolin two-puff inhalation every four hours as needed for shortness of breath or wheezing - Zofran 4 mg by mouth every eight hours as needed for nausea - ranitidine one tablet by mouth daily DISCHARGE TIME: Greater than 30 minutes.
--- NOTE | 2016-03-27 05:24 | EDDOCDS ---
Nurse's Notes [facility] Name: Derek Meier Age: 35 yrs Sex: Male : 1980 Arrival Date: 03/24/2016 Time: 19:12 Bed 15 Private MD: NONE Diagnosis: Gastrointestinal hemorrhage, unspecified Presentation: 03/24 19:18 Presenting complaint: EMS states: pt been vomiting dark and red blood since 5 pm. Mom koOliverio went over to check on pt and he was found in the bathroom hugging the toilet unable to get up and call anyone. Pt saw his primary 2 days ago for the same thing and was given Zofran with relief til tonight. Suicide/Homicide risk assessment- the patient denies having any suicidal and/or homicidal ideations and does not present with any other emotional, behavioral or mental health complaints. Status: Patient is not a supervisor special services or dependent. Transition of care: patient was not received from another setting of care. Care prior to arrival: See EMS report. Medications administered prior to arrival: Zofran 8 mg Saline lock initiated. 19:18 Acuity: CARLOS Level 3 ko2 19:18 Method Of Arrival: Ambulance ko2 03/25 03:29 Adult Sepsis Screening: The patient does not have new or worsening altered mentation. ko2 Patient's respiratory rate is less than 22. Systolic blood pressure is greater than 100. Patient has a qSOFA score of 0- Negative Sepsis Screen. Triage Assessment: 03/24 19:27 General: Appears distressed, Behavior is cooperative. HIV screening NA for this visit ko2 Offered previously. The patient is triaged at the bedside. See Assessment in Nurses Notes section of ED record. Neurological: Level of Consciousness is awake, alert. Respiratory: Airway is patent. GI: Pt is actively vomiting. Derm: Skin is normal. Musculoskeletal: Range of motion intact in all extremities. Historical: - Allergies: mushrooms; MMR (Coma); - PMHx: Asthma; Depression; Schizophrenia; - PSHx: Hernia repair; - Social history: Smoking status: No barriers to communication noted, The patient speaks fluent Bahraini, Speaks appropriately for age. - Family history: Not pertinent. - : The pt / caregiver states he / she is not on anticoagulants. Home medication list is obtained from the patient. - Exposure Risk Screening:: None identified. Screenin:23 Screening information is obtained from the patient. Fall risk: No risks identified. ld5 Assistance ADL's: requires no assistance with activities of daily living. Abuse/DV Screen: The patient / caregiver reports he/she is: not in a situation that causes fear, pain or injury. Nutritional screening: No deficits noted. Advance Directives: There is no active DNR order. home support is adequate. Assessment: 19:27 General: See triage assesment. ko2 19:40 General: labs drawn for primary RN -- pt continues to be nauseated. RN to give meds.. ttb 19:50 General: Pt actively vomiting. Meds infusing. Call rios placed within reach. Pt unable ld5 to tolerate a full assessment at this time. Will continue to monitor. Respiratory: Airway is patent Respiratory effort is even, unlabored. GI: Reports. 20:22 General: Pt resting in bed with eyes closed. Family member at bedside. Fluids infusing. ld5 Will continue to monitor. 20:55 General: Pt reports decreased nausea. Reports pain to abdomen and throat. Pt requesting ld5 ice chips or water. This discussed with provider and NPO enforced at this time. Fluids infusing. Pt aware of need for urine specimen but states he has been having urinary issues for a year. Pt reports urinary frequency, "squirts all over the place", dark urine. Pt states "And I'm not sexually active so you can rule out STDs." Provider made aware. POC discussed with pt and family. Will continue to monitor. 21:52 General: Pt medicated per orders. Reports throat is "very sore". Fluids change to ld5 bolus. Will continue to monitor. 22:30 General: Pt given throat spray and contrast with instructions. Will continue to monitor.ld5 23:19 General: Smells of In to assess pt's tolerance of contrast. Refuses to drink the ld5 contrast due to pain in throat. Pt also requesting nausea medication. Provider made aware of pt's refusal of oral contrast and nausea. Pt medicated per orders. CT scan to be just IV contrast per provider. 23:21 General: Pt reports 8/10 abdominal pain and "my throat is definitely a 12". ld5 03/25 00:03 General: Pt returned from CT. Tolerated well. Requesting popsicles. NPO status pending ld5 CT results explained to pt. Call rios within reach and lights dimmed for comfort. 00:49 General: Pt sleeping. No apparent distress. Awaiting CT results. Will continue to ld5 monitor. 01:20 General: Pt requesting popsicles again. And again pt was made aware of NPO status ld5 pending CT results. 02:11 General: Hospitalist in to speak with pt. ld5 02:50 General: Pt laying comfortably in bed. No apparent distress. Aware of plan for ld5 admission. Will continue to monitor. 03:50 General: Appears in no apparent distress, comfortable. Respiratory: No deficits noted. ko2 Derm: Skin is normal. 03:55 GI: Bowel sounds present X 4 quads. Abd is soft. ko2 Vital Signs: 03/24 19:30 BP 142 / 94; Pulse 93; Resp 18; Temp 98.5; Pulse Ox 100% ; Weight 81.65 kg; Height 5 ko2 ft. 5 in. (165.10 cm); 23:14 BP 138 / 86 (auto/); Pulse 90; Resp 16; Temp 98.1; Pulse Ox 96% on R/A; Pain 8/10; ld5 03/25 02:47 BP 131 / 80 (auto/); Pulse 90; Resp 16; Temp 98; Pulse Ox 95% on R/A; ld5 03:28 BP 128 / 82; Pulse 88; Resp 16; Temp 98.2; Pulse Ox 96% ; Pain 3/10; ko2 03/24 19:30 Body Mass Index 29.95 (81.65 kg, 165.10 cm) ko2 Vitals: 03:28 Log In Time N/A - ambulance arrival. ko2 ED Course: 03/24 19:13 Patient visited by Caity August, Director Of Career Resources. ml3 19:13 Patient moved to Waiting ml3 19:14 NONE is Private Physician. ml3 19:18 Patient moved to 15 ml3 19:20 Triage Initiated ko2 19:23 [facility] le 19:26 Patient visited by Jocelyne Leyva FNP. le 19:26 Patient visited by Jocelyne Leyva FNP. le 19:40 Basic Metabolic Profile Sent. ttb 19:40 CBC with Diff Sent. ttb 19:40 Lipase Sent. ttb 19:40 Liver Profile Sent. ttb 19:40 Type & Screen Sent. ttb 19:40 Maintain field IV. Dressing intact. Good blood return noted. Site clean & dry. Gauge & ttb site: 18LAC. Labs drawn. (by ED staff). 19:49 [facility] Payment Agreement was scanned into [email or web address] and attached to record. jp5 19:51 Patient visited by Elle Isabel RN. ld5 20:23 Patient visited by Elle Isabel RN. ld5 20:23 The patient / caregiver is instructed regarding the plan of care and ED course. ld5 Accompanied by Family Member, Patient has correct armband on for positive identification. Placed in gown. Bed in low position. Call light in reach. 21:15 Patient visited by Elle Isabel RN. ld5 21:53 Patient visited by Elle Isabel,QI. ld5 22:44 Patient visited by Elle Isabel RN. ld5 23:21 Patient visited by Elle Isabel RN. ld5 03/25 00:04 Patient visited by Elle Isabel RN. ld5 00:49 Patient visited by Elle Isabel RN. ld5 00:54 CT ABD & PELVIS: IV and Oral Contrast Returned. EDMS 01:40 Patient visited by Elle Isabel RN. ld5 01:41 Patient visited by Elle Isabel,QI. ld5 02:11 Patient visited by Elle Isabel RN. ld5 02:52 Patient visited by Elle Isabel RN. ld5 02:52 Rian Carr MD is Hospitalizing Provider. cs11 02:52 Sanjeev Brown DO is Attending Physician. cs11 03:29 No procedures done that require assistance. ko2 10:06 T-Sheet-- Draft Copy was scanned into [email or web address] and attached to record. gb 10:06 Radiology Report was scanned into [email or web address] and attached to record. gb Administered Medications: 03/24 19:31 Drug: NS 0.9% 1000 ml [sodium chloride 0.9 % intravenous solution] Route: IV; Rate: ko2 bolus; Site: left antecubital; 21:12 Follow up: IV Status: Completed infusion; IV Intake: 1000ml ld5 19:47 Drug: pantoprazole 80 mg [pantoprazole 40 mg intravenous solution] Route: IV; Rate: ko2 bolus; Site: left antecubital; 19:47 Drug: Promethazine 25 mg [promethazine 25 mg/mL injection solution (1 mL)] Route: IVP; ko2 Site: left antecubital; 21:12 Follow up: Response: Nausea is decreased ld5 20:53 Drug: NS 0.9% 1000 ml [sodium chloride 0.9 % intravenous solution] Route: IV; Rate: 100 ld5 mL/hr; Site: left antecubital; 21:50 Follow up: Rate change 1000 mL/hr ld5 21:50 Drug: NS 0.9% 1000 ml [sodium chloride 0.9 % intravenous solution] Route: IV; Rate: ld5 bolus; Site: left antecubital; 23:32 Follow up: IV Status: Completed infusion; IV Intake: 1000ml ld5 21:51 Drug: Sucralfate 1 grams [sucralfate 1 gram tablet (1 tabs)] Route: PO; ld5 22:30 Drug: Cepacol Dual Relief [place] 5 %-33 % 1 applic Route: Mucous Membrane; ld5 22:30 Drug: Diatrizoate Meglumine & Sodium 10 ml [diatrizoate meglumine and diat.sodium 66 ld5 %-10 % oral solution (10 mL)] Route: PO; 23:11 Not Given (Patient Refused): Diatrizoate Meglumine & Sodium Liquid 10 ml PO once; mix ld5 in 290cc of water 23:18 Drug: Metoclopramide 10 mg [metoclopramide 5 mg/mL injection solution] Route: IV; Rate: ld5 40 mg/hr; Infused Over: 15 mins; Site: left antecubital; Intake: 21:12 IV: 1000.00ml; Total: 1000.00ml. ld5 23:32 IV: 1000.00ml; Total: 2000.00ml. ld5 Order Results: Lab Order: Basic Metabolic Profile; SPEC'M 03/24/16 19:36 Test: GLUCOSE, FASTING; Value: 151; Range: 70-105; Abnormal: Above high normal; Units: MG/DL; Status: F Test: BLOOD UREA NITROGEN; Value: 18; Range: 7-18; Units: MG/DL; Status: F Test: CREATININE FOR GFR; Value: 1.37; Range: 0.70-1.30; Abnormal: Above high normal; Units: MG/DL; Status: F Test: GLOMERULAR FILTRATION RATE; Value: > 60.0; Range: >60; Status: F Test: SODIUM LEVEL; Value: 144; Range: 136-145; Units: MEQ/L; Status: F Test: POTASSIUM SERUM; Value: 3.0; Range: 3.5-5.1; Units: MEQ/L; Status: F Test: CHLORIDE LEVEL; Value: 106; Range: 98-107; Units: MEQ/L; Status: F Test: CARBON DIOXIDE LEVEL; Value: 24; Range: 21-32; Units: MEQ/L; Status: F Test: ANION GAP; Value: 14; Range: 8-16; Units: MEQ/L; Status: F Test: CALCIUM LEVEL; Value: 9.1; Range: 8.5-10.1; Units: MG/DL; Status: F Test Note: ; Units are mL/min/1.73 m2 Chronic Kidney Disease Staging per NKF: Stage I & II GFR >=60 Normal to Mildly Decreased Stage III GFR 30-59 Moderately Decreased Stage IV GFR 15-29 Severely Decreased Stage V GFR <15 Very Little GFR Left ESRD GFR <15 on INVOICING SPECIALIST Lab Order: CBC with Diff; SPEC'M 03/24/16 19:36 Test: WHITE BLOOD COUNT; Value: 16.6; Range: 4.0-10.0; Abnormal: Above high normal; Units: K/mm3; Status: F Test: RED BLOOD COUNT; Value: 4.83; Range: 4.30-6.10; Units: M/mm3; Status: F Test: HEMOGLOBIN; Value: 14.8; Range: 14.0-18.0; Units: g/dl; Status: F Test: HEMATOCRIT; Value: 41.6; Range: 42.0-52.0; Abnormal: Below low normal; Units: %; Status: F Test: MEAN CORPUSCULAR VOLUME; Value: 86.3; Range: 80.0-96.0; Units: fl; Status: F Test: MEAN CORPUSCULAR HEMOGLOBIN; Value: 30.7; Range: 27.0-33.0; Units: pg; Status: F Test: MEAN CORPUSCULAR HGB CONC; Value: 35.6; Range: 32.0-36.5; Units: g/dl; Status: F Test: RED CELL DISTRIBUTION WIDTH; Value: 12.6; Range: 11.5-14.5; Units: %; Status: F Test: PLATELET COUNT, AUTOMATED; Value: 299; Range: 150-450; Units: k/mm3; Status: F Test: NEUTROPHILS %; Value: 84.9; Range: 36.0-66.0; Abnormal: Above high normal; Units: %; Status: F Test: LYMPH %; Value: 8.7; Range: 24.0-44.0; Abnormal: Below low normal; Units: %; Status: F Test: MONO %; Value: 4.6; Range: 0.0-5.0; Units: %; Status: F Test: EOS %; Value: 0.5; Range: 0.0-3.0; Units: %; Status: F Test: BASO %; Value: 0.4; Range: 0.0-1.0; Units: %; Status: F Test: LARGE UNSTAINED CELL %; Value: 1.0; Range: 0.0-4.0; Units: %; Status: F Test: NEUTROPHILS #; Value: 14.1; Range: 1.8-7.7; Abnormal: Above high normal; Units: K/mm3; Status: F Test: LYMPH #; Value: 1.4; Range: 1.5-4.5; Abnormal: Below low normal; Units: K/mm3; Status: F Test: MONO #; Value: 0.8; Range: 0.0-0.8; Units: K/mm3; Status: F Test: EOS #; Value: 0.1; Range: 0.0-0.50; Units: K/mm3; Status: F Test: BASO #; Value: 0.1; Range: 0.0-0.2; Units: K/mm3; Status: F Test: LARGE UNSTAINED CELL #; Value: 0.2; Range: 0.0-0.4; Units: K/mm3; Status: F Lab Order: Lipase; SPEC'M 03/24/16 19:36 Test: LIPASE; Value: 74; Range: 73-393; Units: U/L; Status: F Lab Order: Liver Profile; [facility] 03/24/16 19:36 Test: AST/SGOT; Value: 19; Range: 15-37; Units: U/L; Status: F Test: ALT/SGPT; Value: 52; Range: 12-78; Units: U/L; Status: F Test: ALKALINE PHOSPHATASE; Value: 80; Range: 45-117; Units: U/L; Status: F Test: BILIRUBIN,TOTAL; Value: 1.0; Range: 0.2-1.0; Units: MG/DL; Status: F Test: BILIRUBIN,DIRECT; Value: 0.3; Range: 0.0-0.2; Abnormal: Above high normal; Units: MG/DL; Status: F Test: TOTAL PROTEIN; Value: 7.7; Range: 6.4-8.2; Units: GM/DL; Status: F Test: ALBUMIN; Value: 4.6; Range: 3.2-5.2; Units: GM/DL; Status: F Test: ALBUMIN/GLOBULIN RATIO; Value: 1.48; Range: 1.00-1.93; Status: F Lab Order: Type & Screen; [facility] 03/24/16 19:36 Test: BLOOD TYPE; Value: B POS; Status: F Test: AB SCREEN (INDIRECT JOSIANE)GEL; Value: NEGATIVE; Status: F Lab Order: Urinalysis; [facility] 03/24/16 19:36 Test: APPEARANCE, URINE; Value: CLEAR; Range: CLEAR; Status: F Test: COLOR, URINE; Value: YELLOW; Range: YELLOW; Status: F Test: PH,URINE; Value: 6.0; Range: 5.0-9.0; Units: UNITS; Status: F Test: SPECIFIC GRAVITY URINE AUTO; Value: 1.033; Range: 1.002-1.035; Status: F Test: PROTEIN, URINE AUTO; Value: 2+; Range: NEGATIVE; Abnormal: Above high normal; Units: mg/dL; Status: F Test: GLUCOSE, URINE (UA) AUTO; Value: NEGATIVE; Range: NEGATIVE; Units: mg/dL; Status: F Test: KETONE, URINE AUTO; Value: 2+; Range: NEGATIVE; Abnormal: Above high normal; Units: mg/dL; Status: F Test: UROBILINOGEN, URINE AUTO; Value: 4.0; Range: 0.0-2.0; Abnormal: Above high normal; Units: mg/dL; Status: F Test: BILIRUBIN, URINE AUTO; Value: NEGATIVE; Range: NEGATIVE; Status: F Test: NITRITE, URINE AUTO; Value: NEGATIVE; Range: NEGATIVE; Status: F Test: LEUKOCYTE ESTERASE, URINE AUTO; Value: NEGATIVE; Range: NEGATIVE; Status: F Test: BLOOD, URINE BLOOD; Value: NEGATIVE; Range: NEGATIVE; Status: F Test: WBC, URINE AUTO; Value: 3; Range: 0-3; Units: /HPF; Status: F Test: RBC, URINE AUTO; Value: 2; Range: 0-3; Units: /HPF; Status: F Test: BACTERIA, URINE AUTO; Value: NEGATIVE; Range: NEGATIVE; Status: F Test: SQUAMOUS EPITHELIAL CELL UR AU; Value: 0; Range: 0-6; Units: /HPF; Status: F Test: MUCUS, URINE; Value: SMALL; Range: NEGATIVE; Status: F Test: HYALINE CAST, URINE AUTO; Value: 0; Range: 0-1; Units: /LPF; Status: F Test: CALCIUM OXALATE CRYSTALS; Value: SMALL; Range: NONE; Status: F Lab Order: HEMOGLOBIN & HEMATOCRIT; SPEC'M 03/24/16 23:54 Test: HEMOGLOBIN; Value: 13.3; Range: 14.0-18.0; Abnormal: Below low normal; Units: g/dl; Status: F Test: HEMATOCRIT; Value: 39.4; Range: 42.0-52.0; Abnormal: Below low normal; Units: %; Status: F Lab Order: PROTHROMBIN TIME PROFILE\\E\\INR; SPEC'M 03/24/16 19:36 Test: PROTHROMBIN TIME; Value: 13.3; Range: 12.3-14.5; Units: SECONDS; Status: F Test: INR; Value: 1.00; Status: F Test Note: ; THERAPUTIC HUMAN INR VALUES INDICATIONS NORMAL RANGES PROPHYLAXIS/TREATMENT OF: VENOUS THROMBOSIS 2.0-3.0 PULMONARY EMBOLISM 2.0-3.0 PREVENTION OF SYSTEMIC EMBOLISM FROM: TISSUE HEART VALVES 2.0-3.0 ACUTE MYOCARDIAL INFARCTION 2.0-3.0 VALVULAR HEART DISEASE 2.0-3.0 ATRIAL FIBRILLATION 2.0-3.0 MECHANICAL VALVES(HIGH RISK) 2.5-3.5 RECURRENT MYOCARDIAL INFARCTION 2.5-3.5 Radiology Order: CT ABD & PELVIS: IV and Oral Contrast Test: CT ABD & PELVIS: IV and Oral Contrast REASON FOR EXAMINATION: vomiting blood;Abd. Pain - Generalized, Nn-focal Exam; ; CT of the abdomen and pelvis with contrast; Clinical statement: vomiting blood.; Technique: Multiple axial CT images were obtained from the base of the lungs through the floor of the; pelvis utilizing 5 mm axial slices after administration of oral and nonionic intravenous contrast. C; oronal and sagittal reconstructions were also obtained.; No comparison is available.; Findings:; Chest: The visualized lung bases are clear.; Abdomen: The spleen, pancreas, kidneys, gallbladder, and adrenal glands are unremarkable. Diffuse low; attenuation of the liver is appreciated. The aorta is within normal limits. There is no evidence of; abdominal lymphadenopathy or ascites.; Pelvis: The bowel is unremarkable, with no obstructive or inflammatory changes. The appendix is daniel; l. The urinary bladder is within normal limits. The other pelvic structures appear grossly intact. Th; ere is no evidence of pelvic lymphadenopathy or ascites.; Bones: There are no suspicious osseous abnormalities seen.; Impression: No acute abnormality. Fatty infiltration of the liver.; ; Outcome: 03/25 02:52 Decision to Hospitalize by Provider. cs11 03:54 Discharge Assessment: Patient awake, alert and oriented x 3. No cognitive and/or ko2 functional deficits noted. Patient verbalized understanding of disposition instructions. patient administered narcotics - no. The following High Risk Discharge criteria are identified: None. Admitted to Med/Surg accompanied by tech, via stretcher, with chart. Condition: stable. CT Study completed. Property :Personal belongings accompany Pt. 04:07 Admission hand-off: Report Faxed Fax receipt verified by [facility]. ko2 04:23 Patient left the ED. ko2 Signatures: Dispatcher [employer] EDKS Kathrin Magana, Reg Reg gb Mariangel Caity, Director Of Career Resources Unit ml3 Jocelyne Leyva, Elle Garcia RN RN ld5 Sanjeev Brown DO DO cs11 Pearl Morel, RN RN ttb Alexandra BoyceRN RN ko2 Rafaela Wilson jp5 Chart Complete MTDD
--- NOTE | 2016-03-27 05:24 | EDDOCDS ---
Physician Documentation [facility] Name: Derek Meier Age: 35 yrs Sex: Male : 1980 Arrival Date: 03/24/2016 Time: 19:12 Bed 15 Private MD: NONE Disposition: 03/25/16 02:52 Hospitalization ordered by Rian Carr for Inpatient Admission. Preliminary diagnosis is Gastrointestinal hemorrhage, unspecified. - Bed requested for 4 [place]. - Status is Inpatient Admission. ko2 - Condition is Stable. - Problem is new. - Symptoms are unchanged. Historical: - Allergies: mushrooms; MMR (Coma); - PMHx: Asthma; Depression; Schizophrenia; - PSHx: Hernia repair; - Social history: Smoking status: No barriers to communication noted, The patient speaks fluent Occitan, Speaks appropriately for age. - Family history: Not pertinent. - : The pt / caregiver states he / she is not on anticoagulants. Home medication list is obtained from the patient. - Exposure Risk Screening:: None identified. Vital Signs: 03/24 19:30 BP 142 / 94; Pulse 93; Resp 18; Temp 98.5; Pulse Ox 100% ; Weight 81.65 kg / 180.01 ko2 lbs; Height 5 ft. 5 in. (165.10 cm); 23:14 BP 138 / 86 (auto/); Pulse 90; Resp 16; Temp 98.1; Pulse Ox 96% on R/A; Pain 8/10; ld5 03/25 02:47 BP 131 / 80 (auto/); Pulse 90; Resp 16; Temp 98; Pulse Ox 95% on R/A; ld5 03:28 BP 128 / 82; Pulse 88; Resp 16; Temp 98.2; Pulse Ox 96% ; Pain 3/10; ko2 03/24 19:30 Body Mass Index 29.95 (81.65 kg, 165.10 cm) ko2 MDM: 03/24 19:25 NS 0.9% 1000 ml IV at bolus once ordered. le 19:25 NS 0.9% 1000 ml IV at 100 mL/hr continuous ordered. le 19:25 IV Saline Lock ordered. le 19:25 Undress patient appropriately for examination ordered. le 19:25 pantoprazole 80 mg IV at bolus once ordered. le 19:26 Promethazine 25 mg IVP once; dilute and administer 30-60 minutes ordered. le 19:26 Type & Screen Ordered. EDMS 19:27 Basic Metabolic Profile Ordered. EDMS 19:27 CBC with Diff Ordered. EDMS 19:27 Lipase Ordered. EDMS 19:27 Liver Profile Ordered. EDMS 19:27 Urinalysis Ordered. EDMS 19:27 Abdomen, Flat\E\Upright,PA Chest Ordered. EDMS 19:27 NOTHING BY MOUTH+DIET ordered. EDMS 19:49 [facility] Payment Agreement was scanned into [employer] and attached to record. jp5 19:49 Financial registration complete. jp5 21:41 Basic Metabolic Profile Reviewed. le 21:41 CBC with Diff Reviewed. le 21:41 Liver Profile Reviewed. le 21:41 Urinalysis Reviewed. le 21:41 Lipase Reviewed. le 21:41 Type & Screen Reviewed. le 21:43 NS 0.9% 1000 ml IV at bolus once; 2nd liter please ordered. le 21:43 Fluid Challenge ordered. le 21:43 Sucralfate 1 grams PO once ordered. le 21:50 CT ABD & PELVIS: IV and Oral Contrast Ordered. EDMS 21:56 Cepacol Dual Relief [place] 5 %-33 % 1 applic Mucous Membrane once ordered. le 21:58 Diatrizoate Meglumine & Sodium Liquid 10 ml PO once; mix in 290cc of water ordered. ld5 21:58 Diatrizoate Meglumine & Sodium Liquid 10 ml PO once; mix in 290cc of water ordered. ld5 23:11 Metoclopramide 10 mg IV at 40 mg/hr once over 15 mins ordered. le 23:17 Redraw Labs ordered. le 23:18 Redraw Labs complete. ml3 23:20 HEMOGLOBIN & HEMATOCRIT Ordered. EDMS / 00:46 HEMOGLOBIN & HEMATOCRIT Reviewed. cs11 01:24 CT ABD & PELVIS: IV and Oral Contrast Reviewed. cs11 01:28 BED REQUEST+ADM ordered. EDMS 02:32 NPO DIET ordered. EDMS 02:35 PROTHROMBIN TIME PROFILE\E\INR Ordered. EDMS 02:36 HEMOGLOBIN & HEMATOCRIT Ordered. EDMS 02:36 HEMOGLOBIN & HEMATOCRIT Ordered. EDMS 02:38 COMPLETE BLOOD COUNT Ordered. EDMS 02:39 RENAL PROFILE Ordered. EDMS 02:53 BED REQUEST+ADM ordered. EDMS 03:10 Admission / Observation Status ordered. EDMS 03:19 MAGNESIUM LEVEL Ordered. EDMS 10:06 T-Sheet-- Draft Copy was scanned into [employer] and attached to record. gb 10:06 Radiology Report was scanned into [employer] and attached to record. gb Administered Medications: 03/24 19:31 Drug: NS 0.9% 1000 ml [sodium chloride 0.9 % intravenous solution] Route: IV; Rate: ko2 bolus; Site: left antecubital; 21:12 Follow up: IV Status: Completed infusion; IV Intake: 1000ml ld5 19:47 Drug: pantoprazole 80 mg [pantoprazole 40 mg intravenous solution] Route: IV; Rate: ko2 bolus; Site: left antecubital; 19:47 Drug: Promethazine 25 mg [promethazine 25 mg/mL injection solution (1 mL)] Route: IVP; ko2 Site: left antecubital; 21:12 Follow up: Response: Nausea is decreased ld5 20:53 Drug: NS 0.9% 1000 ml [sodium chloride 0.9 % intravenous solution] Route: IV; Rate: 100 ld5 mL/hr; Site: left antecubital; 21:50 Follow up: Rate change 1000 mL/hr ld5 21:50 Drug: NS 0.9% 1000 ml [sodium chloride 0.9 % intravenous solution] Route: IV; Rate: ld5 bolus; Site: left antecubital; 23:32 Follow up: IV Status: Completed infusion; IV Intake: 1000ml ld5 21:51 Drug: Sucralfate 1 grams [sucralfate 1 gram tablet (1 tabs)] Route: PO; ld5 22:30 Drug: Cepacol Dual Relief [place] 5 %-33 % 1 applic Route: Mucous Membrane; ld5 22:30 Drug: Diatrizoate Meglumine & Sodium 10 ml [diatrizoate meglumine and diat.sodium 66 ld5 %-10 % oral solution (10 mL)] Route: PO; 23:11 Not Given (Patient Refused): Diatrizoate Meglumine & Sodium Liquid 10 ml PO once; mix ld5 in 290cc of water 23:18 Drug: Metoclopramide 10 mg [metoclopramide 5 mg/mL injection solution] Route: IV; Rate: ld5 40 mg/hr; Infused Over: 15 mins; Site: left antecubital; Signatures: Dispatcher [employer] EDWA Muna Duggan, RN RN Kathrin Holman, Reg Reg gb Mariangel, Caity, Call Person Unit ml3 Jocelyne Leyva, INSEMINATOR INSEMINATOR Elle Ma,RN RN ld5 Sanjeev Brown, DO cs11 Alexandra BoyceRN RN Rafaela Marques jp5 The chart was reviewed and I authenticate all verbal orders and agree with the evaluation and treatment provided.Corrections: (The following items were deleted from the chart) 03/25 03: 03:09 MAGNESIUM LEVEL ordered. EDMS EDMS 02:35 HEMOGLOBIN & HEMATOCRIT ordered. EDMS EDMS : 03/24 19:49 [facility] Payment Agreement jp5 03/25 10:06 T-Sheet-- Draft Copy gb Chart Complete MTDD
--- NOTE | 2016-03-27 05:25 | EDDOCDS ---
Physician Documentation [facility] Name: Derek Meier Age: 35 yrs Sex: Male : 1980 Arrival Date: 03/24/2016 Time: 19:12 Bed 15 Private MD: NONE Disposition: 03/25/16 02:52 Hospitalization ordered by Rian Carr for Inpatient Admission. Preliminary diagnosis is Gastrointestinal hemorrhage, unspecified. - Bed requested for 4 Junction. - Status is Inpatient Admission. ko2 - Condition is Stable. - Problem is new. - Symptoms are unchanged. Historical: - Allergies: mushrooms; MMR (Coma); - PMHx: Asthma; Depression; Schizophrenia; - PSHx: Hernia repair; - Social history: Smoking status: No barriers to communication noted, The patient speaks fluent Pashto, Speaks appropriately for age. - Family history: Not pertinent. - : The pt / caregiver states he / she is not on anticoagulants. Home medication list is obtained from the patient. - Exposure Risk Screening:: None identified. Vital Signs: 03/24 19:30 BP 142 / 94; Pulse 93; Resp 18; Temp 98.5; Pulse Ox 100% ; Weight 81.65 kg / 180.01 ko2 lbs; Height 5 ft. 5 in. (165.10 cm); 23:14 BP 138 / 86 (auto/); Pulse 90; Resp 16; Temp 98.1; Pulse Ox 96% on R/A; Pain 8/10; ld5 03/25 02:47 BP 131 / 80 (auto/); Pulse 90; Resp 16; Temp 98; Pulse Ox 95% on R/A; ld5 03:28 BP 128 / 82; Pulse 88; Resp 16; Temp 98.2; Pulse Ox 96% ; Pain 3/10; ko2 03/24 19:30 Body Mass Index 29.95 (81.65 kg, 165.10 cm) ko2 MDM: 03/24 19:25 NS 0.9% 1000 ml IV at bolus once ordered. le 19:25 NS 0.9% 1000 ml IV at 100 mL/hr continuous ordered. le 19:25 IV Saline Lock ordered. le 19:25 Undress patient appropriately for examination ordered. le 19:25 pantoprazole 80 mg IV at bolus once ordered. le 19:26 Promethazine 25 mg IVP once; dilute and administer 30-60 minutes ordered. le 19:26 Type & Screen Ordered. EDMS 19:27 Basic Metabolic Profile Ordered. EDMS 19:27 CBC with Diff Ordered. EDMS 19:27 Lipase Ordered. EDMS 19:27 Liver Profile Ordered. EDMS 19:27 Urinalysis Ordered. EDMS 19:27 Abdomen, Flat\E\Upright,PA Chest Ordered. EDMS 19:27 NOTHING BY MOUTH+DIET ordered. EDMS 19:49 [facility] Payment Agreement was scanned into [facility] and attached to record. jp5 19:49 Financial registration complete. jp5 21:41 Basic Metabolic Profile Reviewed. le 21:41 CBC with Diff Reviewed. le 21:41 Liver Profile Reviewed. le 21:41 Urinalysis Reviewed. le 21:41 Lipase Reviewed. le 21:41 Type & Screen Reviewed. le 21:43 NS 0.9% 1000 ml IV at bolus once; 2nd liter please ordered. le 21:43 Fluid Challenge ordered. le 21:43 Sucralfate 1 grams PO once ordered. le 21:50 CT ABD & PELVIS: IV and Oral Contrast Ordered. EDMS 21:56 Cepacol Dual Relief [place] 5 %-33 % 1 applic Mucous Membrane once ordered. le 21:58 Diatrizoate Meglumine & Sodium Liquid 10 ml PO once; mix in 290cc of water ordered. ld5 21:58 Diatrizoate Meglumine & Sodium Liquid 10 ml PO once; mix in 290cc of water ordered. ld5 23:11 Metoclopramide 10 mg IV at 40 mg/hr once over 15 mins ordered. le 23:17 Redraw Labs ordered. le 23:18 Redraw [facility] complete. ml3 23:20 HEMOGLOBIN & HEMATOCRIT Ordered. EDMS / 00:46 HEMOGLOBIN & HEMATOCRIT Reviewed. cs11 01:24 CT ABD & PELVIS: IV and Oral Contrast Reviewed. cs11 01:28 BED REQUEST+ADM ordered. EDMS 02:32 NPO DIET ordered. EDMS 02:35 PROTHROMBIN TIME PROFILE\E\INR Ordered. EDMS 02:36 HEMOGLOBIN & HEMATOCRIT Ordered. EDMS 02:36 HEMOGLOBIN & HEMATOCRIT Ordered. EDMS 02:38 COMPLETE BLOOD COUNT Ordered. EDMS 02:39 RENAL PROFILE Ordered. EDMS 02:53 BED REQUEST+ADM ordered. EDMS 03:10 Admission / Observation Status ordered. EDMS 03:19 MAGNESIUM LEVEL Ordered. EDMS 10:06 T-Sheet-- Draft Copy was scanned into [facility] and attached to record. gb 10:06 Radiology Report was scanned into [facility] and attached to record. gb Administered Medications: 03/24 19:31 Drug: NS 0.9% 1000 ml [sodium chloride 0.9 % intravenous solution] Route: IV; Rate: ko2 bolus; Site: left antecubital; 21:12 Follow up: IV Status: Completed infusion; IV Intake: 1000ml ld5 19:47 Drug: pantoprazole 80 mg [pantoprazole 40 mg intravenous solution] Route: IV; Rate: ko2 bolus; Site: left antecubital; 19:47 Drug: Promethazine 25 mg [promethazine 25 mg/mL injection solution (1 mL)] Route: IVP; ko2 Site: left antecubital; 21:12 Follow up: Response: Nausea is decreased ld5 20:53 Drug: NS 0.9% 1000 ml [sodium chloride 0.9 % intravenous solution] Route: IV; Rate: 100 ld5 mL/hr; Site: left antecubital; 21:50 Follow up: Rate change 1000 mL/hr ld5 21:50 Drug: NS 0.9% 1000 ml [sodium chloride 0.9 % intravenous solution] Route: IV; Rate: ld5 bolus; Site: left antecubital; 23:32 Follow up: IV Status: Completed infusion; IV Intake: 1000ml ld5 21:51 Drug: Sucralfate 1 grams [sucralfate 1 gram tablet (1 tabs)] Route: PO; ld5 22:30 Drug: Cepacol Dual Relief [place] 5 %-33 % 1 applic Route: Mucous Membrane; ld5 22:30 Drug: Diatrizoate Meglumine & Sodium 10 ml [diatrizoate meglumine and diat.sodium 66 ld5 %-10 % oral solution (10 mL)] Route: PO; 23:11 Not Given (Patient Refused): Diatrizoate Meglumine & Sodium Liquid 10 ml PO once; mix ld5 in 290cc of water 23:18 Drug: Metoclopramide 10 mg [metoclopramide 5 mg/mL injection solution] Route: IV; Rate: ld5 40 mg/hr; Infused Over: 15 mins; Site: left antecubital; Signatures: Dispatcher [employer] EDMT Muna Duggan, RN RN Kathrin Holman, Reg Reg gb Mariangel, Caity, Entry Level Management Unit ml3 Jocelyne Leyva, PROCESS AREA SUPERVISOR PROCESS AREA SUPERVISOR Elle Ma,RN RN ld5 Sanjeev Brown, DO cs11 Alexandra BoyceRN RN Rafaela Marques jp5 The chart was reviewed and I authenticate all verbal orders and agree with the evaluation and treatment provided.Corrections: (The following items were deleted from the chart) 03/25 03: 03:09 MAGNESIUM LEVEL ordered. EDMS EDMS 02:35 HEMOGLOBIN & HEMATOCRIT ordered. EDMS EDMS : 03/24 19:49 [facility] [place] Agreement jp5 03/25 10:06 T-Sheet-- Draft Copy gb Chart Complete MTDD
== END 2016-03-26 14:46 | disposition home or self-care (01) | DRG 243 ==
LOC: M ED 19:12 → M ED INP 03-25 03:08 → M MSPAV 03-25 04:22
PROVIDERS: ADMIT Internal Medicine; ATTEND Internal Medicine
PROC: 0DJ08ZZ Inspection of Upper Intestinal Tract, Via Natural or Artificial Opening Endoscopic (ICD-10-PCS; principal; 2016-03-25 10:13)
DX: K21.0 Gastro-esophageal reflux disease with esophagitis (principal); D62 Acute posthemorrhagic anemia; K76.0 Fatty (change of) liver, not elsewhere classified; R04.2 Hemoptysis; J45.909 Unspecified asthma, uncomplicated; F32.9 Major depressive disorder, single episode, unspecified; F20.9 Schizophrenia, unspecified; F41.9 Anxiety disorder, unspecified; E87.6 Hypokalemia; T39.395A Adverse effect of other nonsteroidal anti-inflammatory drugs [NSAID], initial encounter; F12.90 Cannabis use, unspecified, uncomplicated; D72.829 Elevated white blood cell count, unspecified; K44.9 Diaphragmatic hernia without obstruction or gangrene; Z72.89 Other problems related to lifestyle; Z87.891 Personal history of nicotine dependence; Z79.899 Other long term (current) drug therapy

== ENCOUNTER → 2016-06-01 | Outpatient (CLI) | payer OTHER ==
--- NOTE | 2016-06-01 12:14 | REP ---
Clinical: Pain. Technique: AP and lateral views of the cervical, thoracic, and lumbar spine. Findings: There is mild dextroconvex scoliosis of the thoracic spine of 12 degrees as measured from the superior endplate of T4 to the superior endplate of T8. At the T8 level there is a right-sided bridging osteophyte with associated endplate sclerosis suggesting focal degenerative changes. The remainder of the cervical, thoracic, and lumbar spine in the AP and lateral projections appear normal for age. No further significant degenerative changes are appreciated. Alignment is maintained throughout. No acute fracture / compression injury or subluxation. Impression: Mild dextroconvex scoliosis and degenerative changes involving the thoracic spine as noted above. Remainder examination appears normal. Signed by Rory Dougherty MD 06/01/2016 12:05 P
== END ==
LOC: M WUC 11:20
PROVIDERS: ATTEND Chiropractor
DX: M41.24 Other idiopathic scoliosis, thoracic region (principal); M54.11 Radiculopathy, occipito-atlanto-axial region; M99.01 Segmental and somatic dysfunction of cervical region; M51.36 Other intervertebral disc degeneration, lumbar region; M99.03 Segmental and somatic dysfunction of lumbar region

== ENCOUNTER 2016-06-30 09:49 | Emergency (ER) | payer OTHER ==
[~2016-06-30] VITALS: Ht 165.1 cm; Wt 81.6 kg
[2016-06-30 09:50] VITALS: BP 136/88
[2016-06-30] MEDS ORDERED: TYLE650T35 PO (09:59)
[2016-06-30] MEDS ORDERED: FLON1SPR (10:00)
[2016-06-30] MEDS ORDERED: IBUP80TA PO (11:26)
[2016-06-30] MEDS ORDERED: ROBA500T PO (11:26)
[2016-06-30] MEDS ORDERED: IBUPROFEN 800 MG TAB PO ONE (11:30)
[2016-06-30] MEDS ORDERED: NORCO, ANEXSIA 5/325MG TABLET (HYDROcodone/ACETAMINOPHEN) PO ONE (11:30)
[2016-06-30] MEDS ORDERED: METHOCARBAMOL 500 MG TAB PO ONE (11:30)
== END 2016-06-30 11:36 | disposition home or self-care (01) ==
LOC: M ED 11:14
DX: S29.012A Strain of muscle and tendon of back wall of thorax, initial encounter (principal); X58.XXXA Exposure to other specified factors, initial encounter; Y92.89 Other specified places as the place of occurrence of the external cause; Y93.89 Activity, other specified; Y99.8 Other external cause status; M54.9 Dorsalgia, unspecified; G89.29 Other chronic pain; J45.909 Unspecified asthma, uncomplicated; F33.9 Major depressive disorder, recurrent, unspecified; Z79.51 Long term (current) use of inhaled steroids; Z79.899 Other long term (current) drug therapy; Z88.7 Allergy status to serum and vaccine

== ENCOUNTER → 2016-09-04 | Outpatient (REF) | payer OTHER ==
[~2016-09-04] MED LIST changes: +BACT800T5 PO; +FLON1SPR; +IBUP80TA PO; +NAPR500T PO; +ROBA500T PO; +TYLE650T35 PO; +ZYRT10CA PO
== END ==
LOC: M SFHCSACK 07:57
PROVIDERS: ATTEND Physician Assistant
DX: Z13.220 Encounter for screening for lipoid disorders (principal); Z53.9 Procedure and treatment not carried out, unspecified reason

== ENCOUNTER 2016-09-09 09:16 | Emergency (ER) | payer OTHER ==
[~2016-09-09] VITALS: Ht 165.1 cm; Wt 80.6 kg
[~2016-09-09 09:16] MED LIST changes: -BACT800T5 PO; -NAPR500T PO; -ZYRT10CA PO
[2016-09-09 09:17] VITALS: BP 152/88
[2016-09-09] MEDS: BACTRIM 160MG/800MG DS TAB PO ONE (10:10)
[2016-09-09] MEDS ORDERED: BACT800T5 PO (10:11)
--- NOTE | 2016-09-09 10:14 | REP ---
Clinical: Swelling. Technique: AP, lateral, bilateral oblique views of the left second digit. Findings: Soft tissue swelling is appreciated. No acute fracture dislocation. No subcutaneous emphysema or radiodense foreign body. Impression: Diffuse soft tissue swelling without fracture or foreign body identified. Signed by Rory Dougherty MD 09/09/2016 10:05 A
[2016-09-10] MEDS ORDERED: ZYRT10CA PO (12:58)
[2016-09-10] MEDS ORDERED: NAPR500T PO (15:04)
== END 2016-09-09 10:17 | disposition home or self-care (01) ==
LOC: M ED 09:16
DX: L03.012 Cellulitis of left finger (principal); S61.258A Open bite of other finger without damage to nail, initial encounter; W57.XXXA Bitten or stung by nonvenomous insect and other nonvenomous arthropods, initial encounter; Y92.9 Unspecified place or not applicable; Y93.9 Activity, unspecified; Y99.8 Other external cause status; J45.909 Unspecified asthma, uncomplicated; F32.9 Major depressive disorder, single episode, unspecified; Z79.899 Other long term (current) drug therapy; Z88.7 Allergy status to serum and vaccine

== ENCOUNTER → 2016-10-25 | Outpatient (REF) | payer OTHER ==
[~2016-10-25] MED LIST changes: +BACT800T5 PO; +NAPR500T PO; +ZYRT10CA PO
== END ==
LOC: M SFHCSACK 10:53
PROVIDERS: ATTEND Physician Assistant
DX: Z11.3 Encounter for screening for infections with a predominantly sexual mode of transmission (principal)

== ENCOUNTER → 2017-03-16 | Outpatient (REF) | payer OTHER ==
[2017-03-16 16:17] LABS: BASO # 0.1 10^3/uL (0.0-0.2); BASO % 1.2 % (0.0-1.0); EOS # 0.5 10^3/uL (0.0-0.50); EOS % 5.5 % (0.0-3.0); HEMATOCRIT 43.4 % (42.0-52.0); HEMOGLOBIN 14.8 g/dl (14.0-18.0); IMMATURE GRANULOCYTE # 0.1 10^3/uL (0-0); IMMATURE GRANULOCYTE % 0.6 % (0-0); LYMPH # 1.7 10^3/uL (1.5-4.5); LYMPH % 18.6 % (24.0-44.0); MEAN CORPUSCULAR HEMOGLOBIN 30.2 pg (27.0-33.0); MEAN CORPUSCULAR HGB CONC 34.1 g/dl (32.0-36.5); MEAN CORPUSCULAR VOLUME 88.6 fl (80.0-96.0); MONO # 0.7 10^3/uL (0.0-0.8); MONO % 7.8 % (0.0-5.0); NEUTROPHILS # 6.2 10^3/uL (1.8-7.7); NEUTROPHILS % 66.3 % (36.0-66.0); PLATELET COUNT, AUTOMATED 204 10^3/uL (150-450); RED CELL DISTRIBUTION WIDTH 12.8 % (11.5-14.5); WHITE BLOOD COUNT 9.3 10^3/uL (4.0-10.0)
[2017-03-16 16:35] LABS: ALBUMIN 4.1 GM/DL (3.2-5.2); ALBUMIN/GLOBULIN RATIO 1.32 (1.00-1.93); ALKALINE PHOSPHATASE 71 U/L (45-117); ALT/SGPT 55 U/L (12-78); ANION GAP 7 MEQ/L (8-16); AST/SGOT 18 U/L (7-37); BILIRUBIN,TOTAL 0.4 MG/DL (0.2-1.0); BLOOD UREA NITROGEN 16 MG/DL (7-18); CALCIUM LEVEL 8.7 MG/DL (8.5-10.1); CARBON DIOXIDE LEVEL 29 MEQ/L (21-32); CHLORIDE LEVEL 106 MEQ/L (98-107); CHOLESTEROL LEVEL 197 MG/DL (<200); CHOLESTEROL RISK RATIO 4.804 (<5); CREATININE FOR GFR 1.23 MG/DL (0.70-1.30); FREE T4 0.92 NG/DL (0.76-1.46); GLOMERULAR FILTRATION RATE > 60.0 (>60); GLUCOSE, FASTING 90 MG/DL (70-105); HDL CHOLESTEROL 41 MG/DL (>40); LDL CHOLESTEROL 129.2 MG/DL (<100); NON-HDL-C 156 MG/DL; POTASSIUM SERUM 4.4 MEQ/L (3.5-5.1); SODIUM LEVEL 142 MEQ/L (136-145); TOTAL PROTEIN 7.2 GM/DL (6.4-8.2); TRIGLYCERIDES LEVEL 134 MG/DL (<150)
[2017-03-16 17:47] LABS: TOTAL 25(OH) VITAMIN D 24.2 NG/ML (30.0-100.0)
[2017-03-16 18:17] LABS: HEPATITIS C VIRUS ABY INDEX 0.1 INDEX (<0.8)
[2017-03-16 18:27] LABS: HIV 1&2 SCREEN CENTAUR NEGATIVE (NEGATIVE)
== END ==
LOC: M SFHCSACK 09:18
DX: Z13.220 Encounter for screening for lipoid disorders (principal); K21.0 Gastro-esophageal reflux disease with esophagitis; Z13.29 Encounter for screening for other suspected endocrine disorder; Z11.59 Encounter for screening for other viral diseases; Z11.4 Encounter for screening for human immunodeficiency virus [HIV]; Z11.3 Encounter for screening for infections with a predominantly sexual mode of transmission; Z13.21 Encounter for screening for nutritional disorder

== ENCOUNTER → 2017-05-02 | Outpatient (REF) | payer OTHER ==
[2017-05-03 10:25] LABS: HERPES ZOSTER, VARICELLA IgG 373 index (Immune >165)
== END ==
LOC: M SFHCSACK 13:20
DX: Z00.00 Encounter for general adult medical examination without abnormal findings (principal)

== ENCOUNTER 2018-06-12 10:58 | Emergency (ER) | payer OTHER ==
[~2018-06-12] VITALS: Ht 167.6 cm; Wt 75.0 kg
[~2018-06-12 10:58] MED LIST changes: +NAPR-837 PO; -NAPR500T PO; -PANT40TA2 PO; +PANT40TA3 PO; -ZOFR20TA PO; +ZOFR4TAB16 PO
[2018-06-12] MEDS ORDERED: VENL150C43 PO (11:51)
[2018-06-12] MEDS ORDERED: PERCOCET 5MG/325MG TAB PO ONE (12:15)
--- NOTE | 2018-06-12 13:04 | REP ---
Right ribs four views: No rib fractures or other rib abnormalities are identified. PA chest: Comparison is 03/24/2016. There is no pneumothorax, hemothorax or pulmonary contusion. The lung penaloza are clear. Cardiac size is normal. The gema, mediastinum, skeletal structures are unremarkable. There is no interval change. Impression: Negative PA chest. Electronically Signed by Itz Araiza MD 06/12/2018 12:56 P
[2018-06-12 13:27] VITALS: BP 125/75
[2018-06-12] MEDS ORDERED: PERC5TAB12 PO (14:52)
== END 2018-06-12 15:03 | disposition home or self-care (01) ==
LOC: M ED 10:58
DX: S22.31XA Fracture of one rib, right side, initial encounter for closed fracture (principal); V47.5XXA Car driver injured in collision with fixed or stationary object in traffic accident, initial encounter; Y92.410 Unspecified street and highway as the place of occurrence of the external cause; F33.9 Major depressive disorder, recurrent, unspecified; Z79.899 Other long term (current) drug therapy; Z88.7 Allergy status to serum and vaccine

== ENCOUNTER 2018-06-18 13:12 | Emergency (ER) | payer OTHER ==
[~2018-06-18] VITALS: Ht 167.6 cm; Wt 79.5 kg
[~2018-06-18 13:12] MED LIST changes: +PERC5TAB12 PO; +VENL150C43 PO
[2018-06-18 14:13] LABS: MEAN CORPUSCULAR HEMOGLOBIN 30.7 pg (27.0-33.0); MEAN CORPUSCULAR HGB CONC 34.1 g/dl (32.0-36.5); MEAN CORPUSCULAR VOLUME 90.2 fl (80.0-96.0); PLATELET COUNT, AUTOMATED 300 10^3/uL (150-450); RED BLOOD COUNT 4.88 10^6/uL (4.30-6.10)
[2018-06-18 14:33] LABS: AMPHETAMINES LEVEL URINE NEGATIVE (NEGATIVE); BARBITURATES URINE NEGATIVE (NEGATIVE); BENZODIAZEPINES URINE NEGATIVE (NEGATIVE); CANNABINOIDS URINE POSITIVE (NEGATIVE); COCAINE METABOLITE URINE NEGATIVE (NEGATIVE); METHADONE URINE NEGATIVE (NEGATIVE); OPIATES URINE NEGATIVE (NEGATIVE); PHENCYCLIDINE URINE NEGATIVE (NEGATIVE)
[2018-06-18 14:35] LABS: ACETAMINOPHEN LEVEL < 2.0 UG/ML (10.0-30.0); ALBUMIN 4.6 GM/DL (3.2-5.2); ALT/SGPT 39 U/L (12-78); BILIRUBIN,DIRECT < 0.1 MG/DL (0.0-0.2); BILIRUBIN,TOTAL 0.3 MG/DL (0.2-1.0); BLOOD UREA NITROGEN 13 MG/DL (7-18); CALCIUM LEVEL 9.1 MG/DL (8.5-10.1); CARBON DIOXIDE LEVEL 29 MEQ/L (21-32); CHLORIDE LEVEL 103 MEQ/L (98-107); CREATININE FOR GFR 1.11 MG/DL (0.70-1.30); ETHYL ALCOHOL (ETHANOL) < 0.003 % (0.000-0.010); GLOMERULAR FILTRATION RATE > 60.0 (>60); GLUCOSE, FASTING 99 MG/DL (70-100); POTASSIUM SERUM 3.8 MEQ/L (3.5-5.1); SALICYLATE LEVEL 2.8 MG/DL (5.0-30.0); SODIUM LEVEL 138 MEQ/L (136-145); TOTAL PROTEIN 7.6 GM/DL (6.4-8.2)
[2018-06-18] MEDS ORDERED: LORazepam 1 MG TAB PO ONE (15:30)
[2018-06-18] MEDS ORDERED: IBUPROFEN 600 MG TAB PO ONE (17:00)
[2018-06-18] MEDS ORDERED: PERCOCET 5MG/325MG TAB PO ONE (17:15)
[2018-06-18] MEDS ORDERED: CETI-36 PO (17:31)
[2018-06-18] MEDS ORDERED: PANT-23 PO (17:31)
--- NOTE | 2018-06-18 21:43 | ECGEPIP ---
Stationary ECG Study [facility] - ED Test Date: 2018-06-18 Pat Name: ERICK WEAVER Department: Room: - Gender: M Primary Health Care Nurse: veda : 1980 Requested By: DAY Mcdonald Order Number: [id number] Reading MD: Elena Horvath Measurements Intervals Foster Rate: 84 P: 47 NV: 149 QRS: 81 QRSD: 107 T: 46 QT: 336 QTc: 398 Interpretive Statements SINUS RHYTHM INCOMPLETE RIGHT BUNDLE BRANCH BLOCK NO PRIOR FOR COMPARISON Electronically Signed On 06-18-2018 21:43:13 EDT by Elena Horvath
[2018-06-18] MEDS ORDERED: cloNIDine 0.1 MG TAB PO ONE (22:15)
[2018-06-18] MEDS ORDERED: PROP10TA56 PO (22:16)
[2018-06-18 22:53] VITALS: BP 135/100
== END 2018-06-18 23:00 ==
LOC: M ED 13:12
DX: R45.851 Suicidal ideations (principal); F32.9 Major depressive disorder, single episode, unspecified; F20.9 Schizophrenia, unspecified; K21.9 Gastro-esophageal reflux disease without esophagitis; K44.9 Diaphragmatic hernia without obstruction or gangrene; M54.9 Dorsalgia, unspecified; G89.29 Other chronic pain; Z88.7 Allergy status to serum and vaccine; Z79.899 Other long term (current) drug therapy
CPT/HCPCS: 36415; 80048; 80076; 80307; 84443; 85027; 93005; 99284; G0480

== ENCOUNTER 2018-06-27 05:56 | Emergency (ER) | payer OTHER ==
[~2018-06-27] VITALS: Ht 167.6 cm; Wt 81.8 kg
[~2018-06-27 05:56] MED LIST changes: +CETI-36 PO; +PANT-23 PO; +PROP10TA56 PO
[2018-06-27] MEDS ORDERED: IBUP80TA PO (06:03)
[2018-06-27] MEDS ORDERED: DICL1GEL3 TOP (06:03)
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
[2018-06-27] MEDS ORDERED: NORC1TAB7 PO (09:14)
--- NOTE | 2018-06-27 09:18 | REP ---
RIGHT RIB SERIES: Four views of the right ribs are performed. No fracture or bone lesion is seen. An accompanying view of the chest demonstrates no infiltrate, pneumothorax, or pleural effusion. There are degenerative changes of the spine. Heart is normal in size and the mediastinal silhouette is unremarkable. IMPRESSION: No radiographic evidence of right rib fracture. Electronically Signed by Itz Stout MD 06/27/2018 11:07 A
[2018-06-27 09:58] VITALS: BP 138/94
[2018-06-27] MEDS ORDERED: NORCO, ANEXSIA 5/325MG TABLET (HYDROcodone/ACETAMINOPHEN) PO ONE (10:00)
== END 2018-06-27 10:04 | disposition home or self-care (01) ==
LOC: M ED 05:56
DX: S43.101A Unspecified dislocation of right acromioclavicular joint, initial encounter (principal); V89.2XXA Person injured in unspecified motor-vehicle accident, traffic, initial encounter; Y92.410 Unspecified street and highway as the place of occurrence of the external cause; J45.909 Unspecified asthma, uncomplicated; F41.9 Anxiety disorder, unspecified; F32.9 Major depressive disorder, single episode, unspecified; F43.10 Post-traumatic stress disorder, unspecified; Z88.7 Allergy status to serum and vaccine; Z79.899 Other long term (current) drug therapy; Z79.1 Long term (current) use of non-steroidal anti-inflammatories (NSAID)

== ENCOUNTER 2018-09-06 14:32 | Emergency (ER) | payer OTHER ==
[~2018-09-06] VITALS: Ht 167.6 cm; Wt 81.4 kg
[~2018-09-06 14:32] MED LIST changes: +DICL1GEL3 TOP; +NORC1TAB7 PO
[2018-09-06 14:33] VITALS: BP 138/94
[2018-09-06] MEDS ORDERED: OXYC1TAB15 PO (14:42)
[2018-09-06] MEDS ORDERED: CLIN300C5 PO (14:42)
[2018-09-06] MEDS ORDERED: NORC1TAB7 PO (15:18)
== END 2018-09-06 15:33 | disposition home or self-care (01) ==
LOC: M ED 14:32
DX: K04.7 Periapical abscess without sinus (principal); K08.89 Other specified disorders of teeth and supporting structures; R22.0 Localized swelling, mass and lump, head; Z88.7 Allergy status to serum and vaccine; Z79.899 Other long term (current) drug therapy; Z79.2 Long term (current) use of antibiotics; Z79.891 Long term (current) use of opiate analgesic

== ENCOUNTER → 2019-03-12 | Outpatient (CLI) | payer MEDICAID ==
[~2019-03-12] MED LIST changes: +CLIN300C5 PO; +OXYC1TAB15 PO
== END ==
LOC: M OUTALCOH 09:20
PROVIDERS: ATTEND Psychiatry & Neurology Psychiatry
DX: F10.20 Alcohol dependence, uncomplicated (principal); F12.20 Cannabis dependence, uncomplicated

== ENCOUNTER 2020-03-10 17:23 | Emergency (ER) | payer MEDICAID, OTHER ==
[~2020-03-10] VITALS: Ht 167.6 cm; Wt 80.8 kg
[~2020-03-10 17:23] MED LIST changes: +ACET650T61 PO; -CLIN300C5 PO; +CLIN300C6 PO; +PANT40TA29 PO; -PANT40TA3 PO; -TYLE650T35 PO
[2020-03-10] MEDS ORDERED: VENTAER INH (17:42)
[2020-03-10] MEDS ORDERED: TESS100C PO (19:28)
[2020-03-10] MEDS ORDERED: ONDA4TAB6 PO (19:28)
[2020-03-10] MEDS ORDERED: MUCI1TAB18 PO (19:28)
[2020-03-10] MEDS ORDERED: BENZONATATE 100 MG CAP PO ONE (19:30)
[2020-03-10] MEDS ORDERED: ONDANSETRON 4 MG ORAL DISINTEGRATING TAB PO ONE (19:30)
[2020-03-10 19:44] VITALS: BP 138/80
== END 2020-03-10 19:46 | disposition home or self-care (01) ==
LOC: M ED 17:23
DX: R09.81 Nasal congestion (principal); R05 Cough; R11.10 Vomiting, unspecified; F99 Mental disorder, not otherwise specified; F17.200 Nicotine dependence, unspecified, uncomplicated; Z88.7 Allergy status to serum and vaccine; Z79.899 Other long term (current) drug therapy
CPT/HCPCS: 99283; Q0162; U0003

== ENCOUNTER 2020-07-11 16:36 | Emergency (ER) | payer OTHER ==
[~2020-07-11] VITALS: Ht 167.6 cm; Wt 78.8 kg
[~2020-07-11 16:36] MED LIST changes: +MUCI1TAB18 PO; +ONDA4TAB6 PO; +TESS100C PO; +VENTAER INH
[2020-07-11 18:49] VITALS: BP 155/88
== END 2020-07-11 19:02 | disposition home or self-care (01) ==
LOC: M ED 16:36
DX: F43.21 Adjustment disorder with depressed mood (principal); F41.9 Anxiety disorder, unspecified; I10 Essential (primary) hypertension; F17.200 Nicotine dependence, unspecified, uncomplicated; Z88.7 Allergy status to serum and vaccine

== ENCOUNTER 2020-07-15 17:58 | Emergency (ER) | payer OTHER ==
[~2020-07-15] VITALS: Ht 167.6 cm; Wt 78.8 kg
[2020-07-15 17:59] VITALS: BP 143/90
[2020-07-15] MEDS ORDERED: VENL150C43 (18:11)
[2020-07-15] MEDS ORDERED: VENL150C43 PO (18:41)
== END 2020-07-15 18:57 | disposition home or self-care (01) ==
LOC: M ED 17:58
DX: Z76.0 Encounter for issue of repeat prescription (principal); I10 Essential (primary) hypertension; F17.200 Nicotine dependence, unspecified, uncomplicated; Z79.899 Other long term (current) drug therapy; Z88.7 Allergy status to serum and vaccine

== ENCOUNTER 2021-01-05 13:27 | Emergency (ER) | payer OTHER ==
[~2021-01-05 13:27] MED LIST changes: +CLIN-250 PO; -CLIN300C6 PO; -OXYC1TAB15 PO; +OXYC7.5T3 PO; +VENL150C43
--- OUTSIDE RECORDS SUMMARY | 2021-01-05 13:34 | CCD ---
Author Author Derek Villalta Organization Unknown Address [address] [address] Phone Care Team Providers Care Box Liner Name Role Phone Vivian Villalta PCP Allergies, Adverse Reactions, Alerts No Data in Section Problem List Concept Problem Description Status Start Date Created Date Resolv ed Date Snomed Code F43.9 Unspecified Trauma- and Stressor-Related Disorder Active 12/16/2020 F17.200 Tobacco Use Disorder, Severe Active 12/16/2020 F12.20 Cannabis Use Disorder, Moderate Active 12/17/19 21 Medications No Data in Section Social History Social History Element Description Concept Effective Date Smoking Status Unknown if ever smoked [id number] Immunizations No Data in Section Vital Signs No Data in Section Procedures Date Concept Id Description Targeted Site Concept Targeted Site Concept Type 12/15/2020 09787 Extended Individual Psychotherapy - 45 min CPT Patient has no history of implantable de vices Encounters Encounter Start Date End Date Encounter Type Description Diagnosis Di agnosis Desc Location Author First Name Author Last Name Npid Taxonomy Cod e Taxonomy Desc Phone Number Location Addr1 Location Addr2 Location [facility] Location [facility] Location [facility] 050729 12/15/2020 12/15/2020 46961 Extended Individual Psych otherapy - 45 min F43.9 Reaction to severe stress, unspecified [facility] [place] [phone] [id number] Horse Identifier [id number] [address] [address] Plan of Treatment No Data in Section Lab Results No Data in Section Instructions No Data in Section Insurance Providers Insurance Id Policy Effective Date Policy Thru Date Company N claudio [id number] 2020 [employer] MAnabel goins
--- OUTSIDE RECORDS SUMMARY | 2021-01-05 13:34 | CCD ---
Author Author Derek Villalta Organization Unknown Address [address] [address] Phone Care Team Providers Care Vault Cashier Name Role Phone Vivian Villalta PCP Allergies, Adverse Reactions, Alerts No Data in Section Problem List Concept Problem Description Status Start Date Created Date Resolv ed Date Snomed Code F43.9 Unspecified Trauma- and Stressor-Related Disorder Active 12/30/2020 F17.200 Tobacco Use Disorder, Severe Active 12/30/2020 F12.20 Cannabis Use Disorder, Moderate Active 12/31/19 21 Medications No Data in Section Social History Social History Element Description Concept Effective Date Smoking Status Unknown if ever smoked [id number] Immunizations No Data in Section Vital Signs No Data in Section Procedures Date Concept Id Description Targeted Site Concept Targeted Site Concept Type 12/29/2020 26255 Extended Individual Psychotherapy - 45 min CPT Patient has no history of implantable de vices Encounters Encounter Start Date End Date Encounter Type Description Diagnosis Di agnosis Desc Location Author First Name Author Last Name Npid Taxonomy Cod e Taxonomy Desc Phone Number Location Addr1 Location Addr2 Location [facility] Location [facility] Location [facility] [id number] 12/29/2020 12/29/2020 77377 Extended Individual Psych otherapy - 45 min F43.9 Reaction to severe stress, unspecified [facility] [place] [phone] [id number] Laboratory Mechanic Helper [phone] [address] [address] Plan of Treatment No Data in Section Lab Results No Data in Section Instructions No Data in Section Insurance Providers Insurance Id Policy Effective Date Policy Thru Date Company N claudio [id number] 2020 [employer] MAnabel goins
--- OUTSIDE RECORDS SUMMARY | 2021-01-05 13:34 | CCD ---
Author Author [place] Organization Unknown Address [address] [address] Phone Care Team Providers Care Locomotive Crane Operator Name Role Phone Vivian Villalta PCP Allergies, Adverse Reactions, Alerts No Data in Section Problem List Concept Problem Description Status Start Date Created Date Resolv ed Date Snomed Code F43.9 Unspecified Trauma- and Stressor-Related Disorder Active 10/25/2020 Medications No Data in Section Social History Social History Element Description Concept Effective Date Smoking Status Unknown if ever smoked [id number] Immunizations No Data in Section Vital Signs No Data in Section Procedures Date Concept Id Description Targeted Site Concept Targeted Site Concept Type 10/25/2020 92532 Extended Individual Psychotherapy - 45 min CPT Patient has no history of implantable de vices Encounters Encounter Start Date End Date Encounter Type Description Diagnosis Di agnosis Desc Location Author First Name Author Last Name Npid Taxonomy Cod e Taxonomy Desc Phone Number Location Addr1 Location Addr2 Location [facility] Location [facility] Location [facility] 044997 10/25/2020 10/25/2020 21735 Extended Individual Psych otherapy - 45 min F43.9 Reaction to severe stress, unspecified [facility] [place] [phone] [id number] Mental Health [phone] [address] [address] Plan of Treatment No Data in Section Lab Results No Data in Section Instructions No Data in Section Insurance Providers Insurance Id Policy Effective Date Policy Thru Date Company N claudio [id number] 2020 [employer] Autumn goins
--- OUTSIDE RECORDS SUMMARY | 2021-01-05 13:34 | CCD ---
Author Author [place] Organization Unknown Address [address] [address] Phone Care Team Providers Care Ski Patrol Officer Name Role Phone Vivian Villalta PCP Allergies, Adverse Reactions, Alerts No Data in Section Problem List Concept Problem Description Status Start Date Created Date Resolv ed Date Snomed Code F43.9 Unspecified Trauma- and Stressor-Related Disorder Active 10/12/2020 Medications No Data in Section Social History Social History Element Description Concept Effective Date Smoking Status Unknown if ever smoked [id number] Immunizations No Data in Section Vital Signs No Data in Section Procedures Date Concept Id Description Targeted Site Concept Targeted Site Concept Type 10/11/2020 30273 Extended Individual Psychotherapy - 45 min CPT Patient has no history of implantable de vices Encounters Encounter Start Date End Date Encounter Type Description Diagnosis Di agnosis Desc Location Author First Name Author Last Name Npid Taxonomy Cod e Taxonomy Desc Phone Number Location Addr1 Location Addr2 Location [facility] Location [facility] Location [facility] [id number] 10/11/2020 10/11/2020 59065 Extended Individual Psych otherapy - 45 min F43.9 Reaction to severe stress, unspecified [facility] [place] [phone] [id number] Mental Health [phone] [address] [address] Plan of Treatment No Data in Section Lab Results No Data in Section Instructions No Data in Section Insurance Providers Insurance Id Policy Effective Date Policy Thru Date Company N claudio [id number] 2020 [employer] Autumn goins
--- OUTSIDE RECORDS SUMMARY | 2021-01-05 13:34 | CCD ---
Author Author Derek Villalta Organization Unknown Address [address] [address] Phone Care Team Providers Care Combustion Engineer Name Role Phone Vivian Villalta PCP Allergies, [...] Date Smoking Status Unknown if ever smoked [id number] Immunizations No Data in Section Vital Signs No Data in Section Procedures Date Concept Id Description Targeted Site Concept Targeted Site Concept Type 12/15/2020 59678 Extended Individual Psychotherapy - 45 min CPT Patient has no history of implantable de vices Encounters Encounter Start Date End Date Encounter Type Description Diagnosis Di agnosis Desc Location Author First Name Author Last Name Npid Taxonomy Cod e Taxonomy Desc Phone Number Location Addr1 Location Addr2 Location [facility] Location [facility] Location [facility] [id number] 12/15/2020 12/15/2020 62259 Extended Individual Psych otherapy - 45 min F43.9 Reaction to severe stress, unspecified [facility] [place] [phone] [id number] Cycle Liaison [phone] [address] [address] Plan of Treatment No Data in Section Lab Results No Data in Section Instructions No Data in Section Insurance Providers Insurance Id Policy Effective Date Policy Thru Date Company N claudio [id number] 2020 [employer] MAnabel goins
--- OUTSIDE RECORDS SUMMARY | 2021-01-05 13:35 | CCD ---
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 Urine by Test strip NEG ALFREDO L: Negative [facility] Urobilinogen [Mass/volume] in Urine by Test strip NOR less lino n 1.0 mg/dL [facility] MICROSCOPIC See Below [facility] ital WBC 1 - 3 NORMAL: NONE SEEN [facility] Erythrocytes [#/volume] in Urine by Test strip TNTC NORMAL: NON E SEEN A [facility] EPITHELIAL FEW NORMAL: NONE SEEN [facility] Bacteria [Presence] in Urine sediment by Light microscopy Tr leana NORMAL: NONE SEEN [facility] Mucus [Presence] in Urine sediment by Light microscopy Trace NORMAL: NONE SEEN [facility] Casts [#/area] in Urine sediment by Microscopy low power field See Be low [facility] Hyaline casts [#/area] in Urine sediment by Microscopy low p ower field 1-3 NORMAL: None Seen A [facility] ID Date Data Source [id number] 01/05/2021 01:57:00 AM EDT [facility] Name Value Range Interpretation Code Description Data Vivienne rce(s) Supporting Document(s) COMPREHENSIVE METABOLIC PANEL [facility] COMPREHENSIVE METABOLIC PANEL Sodium [Moles/volume] in Serum or Plasma 141 mEq/L 134 - 153 [facility] Potassium [Moles/volume] in Serum or Plasma 4.4 mEq/L 3.6 - 5.0 [facility] Chloride [Moles/volume] in Serum or Plasma 104 mEq/L 98 - 107 [facility] Carbon dioxide, total [Moles/volume] in Serum or Plasma 25 MEQ/L 22 - 30 [facility] Glucose [Mass/volume] in Serum or Plasma 127 MG/DL 70 - 99 H [facility] BUN 19 MG/DL 7 - 21 [facility] Creatinine [Mass/volume] in Serum or Plasma 1.1 MG/DL 0.7 - 1.5 [facility] BUN/CREAT 17 8 - 27 [facility] al Protein [Mass/volume] in Serum or Plasma 7.4 G/DL 6.3 - 8.2 [facility] Albumin [Mass/volume] in Serum or Plasma 5.2 G/DL 3.9 - 5.0 H [facility] Globulin [Mass/volume] in Serum by calculation 2.2 GM/DL 2.4 - 3.2 L [facility] A/G RATIO 2.4 0.8 - 2.0 H [facility] Calcium [Mass/volume] in Serum or Plasma 10.2 MG/DL 8.4 - 10.2 [facility] Bilirubin.total [Mass/volume] in Serum or Plasma <0.7 MG/DL 0.2 - 1.3 [facility] Alkaline phosphatase [Enzymatic activity/volume] in Serum or Plasma 91 U/L 38 - 126 [facility] Aspartate aminotransferase [Enzymatic activity/volume] in Serum or Plasma 16 U/L 5 - 40 [facility] Alanine aminotransferase [Enzymatic activity/volume] in Seru m or Plasma 18 U/L 7 - 56 [facility] Anion gap 3 in Serum or Plasma 12.0 mmol/L 8.0 - 16.0 [facility] AGE 40 yrs [facility] NON-AA GFR >60 mL/min [facility] ital AFR AMER GFR >60 mL/min [facility] Male GFR In terprentation 20-49 yrs >60 mL/min Normal 50-59 yrs >56 mL/min Normal 60-69 yrs >49 mL/min Normal 70-79yrs >42 mL/min Normal 80 and above >35 mL/min Normal Female GFR Interpretation 20-39 yrs >60 mL/min Normal 40-49 yrs >58 mL/min Normal 50-59 yrs >51 mL/min Normal 60-69 yrs >45 mL/min Normal 70-79 yrs >39 mL/min Normal 80 and above >32 mL/min Normal ID Date Data Source [id number] 01/05/2021 01:58:00 AM EDT [facility] Name Value Range Interpretation Code Description Data Vivienne rce(s) Supporting Document(s) Ethanol [Moles/volume] in Blood <10.0 MG/DL [facility] ALCOHOL % 0.00 % 0.00 - 0.01 [facility] ital *FOR MEDICAL PURPOSES ONLY * ID Date Data Source [id number] 01/05/2021 01:58:00 AM EDT [facility] Name Value Range Interpretation Code Description Data Vivienne rce(s) Supporting Document(s) SALICYLATE <0.3 mg/dL 2.0 - 20.0 L [facility] ID Date Data Source [id number] 01/05/2021 01:58:00 AM EDT [facility] Name Value Range Interpretation Code Description Data Vivienne rce(s) Supporting Document(s) Acetaminophen [Presence] in Urine <5.0 UG/ML 0.0 - 30.0 [facility] ID Date Data Source [id number] 01/05/2021 01:58:00 AM EDT [facility] Name Value Range Interpretation Code Description Data Vivienne rce(s) Supporting Document(s) Thyrotropin [Units/volume] in Serum or Plasma by Detec tion limit <= 0.05 mIU/L 3.65 uIU/mL 0.47 - 5.01 [facility] ID Date Data Source [id number] 01/05/2021 01:29:00 AM EDT [facility] Name Value Range Interpretation Code Description Data Vivienne rce(s) Supporting Document(s) CBC NO DIFF [facility] COMPLETE BLOOD COUNT Leukocytes [#/volume] in Blood by Automated count 12.5 10^3/uL 4.2 - 11.0 H [facility] Erythrocytes [#/volume] in Blood by Automated count 5.31 10^6/uL 4. 50 - 6.30 [facility] Hemoglobin [Mass/volume] in Blood 16.3 g/dL 14.0 - 16.0 H [facility] Hematocrit [Volume Fraction] of Blood by Automated count 46.8 % 4 1.0 - 51.0 [facility] Erythrocyte mean corpuscular volume [Entitic volume] by Auto mated count 88.1 fL 80.0 - 94.0 [facility] Erythrocyte mean corpuscular hemoglobin [Entitic mass] by Automated count 30.7 pg 27.0 - 34.0 [facility] Erythrocyte mean corpuscular hemoglobin concentration [Mass/volume] by Automated count 34.8 g/dL 31.0 - 36.0 [facility] Erythrocyte distribution width [Ratio] by Automated count 13.0 % 11.5 - 14.8 [facility] Platelets [#/volume] in Blood by Automated count 297 10^3/uL 150 - 45 0 [facility] Platelet mean volume [Entitic volume] in Blood by Automated count 9.0 fL 7.4 - 10.4 [facility] ID Date Data Source [id number] 08/12/2020 08:35:00 AM EDT [facility]) Name Value Range Interpretation Code Description Data Vivienne rce(s) Supporting Document(s) Calcidiol [Mass/volume] in Serum or Plasma 19 NG/mL 30-100 Below low normal Vitamin D,25-Oh,total,ia [facility]) ID Date Data Source [id number] 08/12/2020 08:35:00 AM EDT [facility]) Name Value Range Interpretation Code Description Data Vivienne rce(s) Supporting Document(s) Hepatitis C virus Ab [Presence] in Serum or Plasma by Immuno assay non-reactive non-reactive Hepatitis C Antibody [facility]) Hepatitis C virus Ab Signal/Cutoff in Serum or Plasma by Immunoassa y <1.00 Index [facility] ID Date Data Source [id number] 08/12/2020 08:35:00 AM EDT [facility]) Name Value Range Interpretation Code Description Data Vivienne rce(s) Supporting Document(s) Erythrocytes [#/volume] in Blood by Automated count 4.84 million/uL 4.20-5.80 Red Blood Cell Count [place] ([facility]) Leukocytes [#/volume] in Blood by Automated count 7.5 thousand/uL 3 .8-10.8 White Blood Cell Count [place] ([facility]) Hematocrit [Volume Fraction] of Blood by Automated count 43.7 % 38.5-50.0 Hematocrit [facility] ([facility]) Erythrocyte mean corpuscular hemoglobin [Entitic mass] by Automated count 31.0 pg 27.0-33.0 Mch [facility] ([facility]) Erythrocyte mean corpuscular volume [Entitic volume] by Auto mated count 90.3 fL 80.0-100.0 Mcv [facility] ([facility]) Hemoglobin [Mass/volume] in Blood 15.0 g/dL 13.2-17.1 He moglobin [facility] ([facility]) Erythrocyte distribution width [Ratio] by Automated count 13.0 % 11.0-15.0 Rdw [facility] ([facility]) Erythrocyte mean corpuscular hemoglobin concentration [Mass/volume] by Automated count 34.3 g/dL 32.0-36.0 Mchc [facility] ([facility]) Platelets [#/volume] in Blood by Automated count 215 thousand/uL 14 0-400 Platelet Count [facility] ([facility]) Lymphocytes [#/volume] in Blood by Automated count 2138 cells/uL 85 0-3900 Absolute Lymphocytes [facility] ([facility]) Monocytes [#/volume] in Blood by Automated count 698 cells/uL 200-9 50 Absolute Monocytes [facility] ([facility]) Platelet mean volume [Entitic volume] in Blood by Klaus-Gurjit 9.9 fL 7.5-12.5 Mpv [facility] ([facility]) Neutrophils [#/volume] in Blood by Automated count 4298 cells/uL 15 00-7800 Absolute Neutrophils [facility] ([facility]) Neutrophils/100 leukocytes in Blood by Automated count 57.3 % 38-80 Neutrophils [facility] ([facility]) Eosinophils [#/volume] in Blood by Automated count 300 cells/uL 15- 500 Absolute Eosinophils [facility] ([facility]) Basophils [#/volume] in Blood by Automated count 68 cells/uL 0-200 Absolute Basophils [facility] ([facility]) Lymphocytes/100 leukocytes in Blood by Automated count 28.5 % 15-49 Lymphocytes [facility] Monocytes/100 leukocytes in Blood by Automated count 9.3 % 0-13 Monocytes [facility] ([facility]) Eosinophils/100 leukocytes in Blood by Automated count 4.0 % 0-8 Eosinophils [facility] ([facility]) Basophils/100 leukocytes in Blood by Automated count 0.9 % 0-2 Basophils [facility] ([facility]) ID Date Data Source [id number] 08/12/2020 08:35:00 AM EDT [place] ([facility]) Name Value Range Interpretation Code Description Data Vivienne rce(s) Supporting Document(s) Glucose [Mass/volume] in Serum or Plasma 90 mg/dL 65-99 Glucose [place] ([facility]) Urea nitrogen [Mass/volume] in Serum or Plasma 11 mg/dL 7-25 Urea Nitrogen (BUN) [facility]) Creatinine [Mass/volume] in Serum or Plasma 1.07 mg/dL 0.60-1.35 Creatinine [place] ([facility]) Glomerular filtration rate/1.73 sq M.pre dicted among non-blacks [Volume Rate/Area] in Serum, Plasma or Blood by Creatinine-based formula (CKD-EPI) 87 mL/min/1.73m2 > or = 60 eGFR Non-afr. Serbian [facility] ([facility]) Sodium [Moles/volume] in Serum or Plasma 141 mmol/L 135-146 Sodium [place] ([facility]) Urea nitrogen/Creatinine [Mass Ratio] in Serum or Plasma not applic able 6-22 BUN/creatinine Ratio [place] ([facility]) Glomerular filtration rate/1.73 sq M.pre dicted among blacks [Volume Rate/Area] in Serum, Plasma or Blood by Creatinine-based formula (CKD-EPI) 101 mL/min/1.73m2 > or = 60 eGFR [facility] (No [facility]) Potassium [Moles/volume] in Serum or Plasma 4.3 mmol/L 3.5-5.3 Potassium [facility]) Calcium [Mass/volume] in Serum or Plasma 9.0 mg/dL 8.6-10.3 Calcium [facility]) Carbon dioxide, total [Moles/volume] in Serum or Plasma 32 mmol/L 20-32 Carbon Dioxide [facility] ([facility]) Chloride [Moles/volume] in Serum or Plasma 106 mmol/L 98-110 Chloride [facility] ([facility]) Globulin [Mass/volume] in Serum by calculation 2.0 g/dL_(calc) 1.9- 3.7 Globulin [facility] ([facility]) Albumin/Globulin [Mass Ratio] in Serum or Plasma 2.3 (calc) 1.0-2 .5 Albumin/globulin Ratio [facility] ([facility]) Protein [Mass/volume] in Serum or Plasma 6.5 g/dL 6.1-8.1 Protein, Total [facility] ([facility]) Albumin [Mass/volume] in Serum or Plasma 4.5 g/dL 3.6-5.1 Albumin [place] ([facility]) Alkaline phosphatase [Enzymatic activity/volume] in Serum or Plasma 71 U/L 36-130 Alkaline Phosphatase [place] ([facility]) Bilirubin.total [Mass/volume] in Serum or Plasma 0.5 mg/dL 0.2-1 .2 Bilirubin, Total [facility] ([facility]) Aspartate aminotransferase [Enzymatic activity/volume] in Serum or Plasma 12 U/L 10-40 Ast [place] ([facility]) Alanine aminotransferase [Enzymatic activity/volume] in Seru m or Plasma 14 U/L 9-46 Alt [facility] ([facility]) ID Date Data Source [id number] 08/12/2020 08:35:00 AM EDT [place] ([facility]) Name Value Range Interpretation Code Description Data Vivienne rce(s) Supporting Document(s) Thyroxine (T4) free [Mass/volume] in Serum or Plasma 0.9 NG/dL 0 .8-1.8 T4, Free [facility] ([facility]) Thyrotropin [Units/volume] in Serum or Plasma 3.98 mIU/L 0.40-4.50 Tsh [place] ([facility]) ID Date Data Source [id number] 08/12/2020 08:35:00 AM EDT [place] ([facility]) Name Value Range Interpretation Code Description Data Vivienne rce(s) Supporting Document(s) HIV 1+2 Ab+HIV1 p24 Ag [Presence] in Serum or Plasma b y Immunoassay non-reactive non-reactive HIV Ag/Ab, 4TH Gen [facility]) ID Date Data Source [id number] 08/12/2020 08:35:00 AM EDT [place] ([facility]) Name Value Range Interpretation Code Description Data Vivienne rce(s) Supporting Document(s) Cholesterol in HDL [Mass/volume] in Serum or Plasma 36 mg/dL > or = 40 Below low normal HDL Cholesterol [facility] ([facility]) Cholesterol [Mass/volume] in Serum or Plasma 186 mg/dL <200 Cholesterol, Total [facility] ([facility]) Triglyceride [Mass/volume] in Serum or Plasma 129 mg/dL <150 Triglycerides [facility]) Cholesterol in LDL [Mass/volume] in Serum or Plasma by calculation 126 mg/dL_(calc) Above high normal LDL-cholesterol [facility] ([facility]) Cholesterol.total/Cholesterol in HDL [Mass Ratio] in Serum o r Plasma 5.2 (calc) <5.0 Above high normal Chol/hdlc Ratio [facility]) Cholesterol non HDL [Mass/volume] in Serum or Plasma 150 mg/dL_( calc) <130 Above high normal Non HDL Cholesterol [place] ([facility]) ID Date Data Source [id number] 03/10/2020 07:29:00 PM EST [facility] Name Value Range Interpretation Code Description Data Vivienne rce(s) Supporting Document(s) SARS coronavirus 2 RNA Not Detected [facility] This lab was ordered by [facility] and reported by [facility]. Procedure Social History Code Duration Value Status Description Data Source(s ) Smoking 12/30/2020 12:00:00 AM EDT Unknown if ever smoked comp leted Unknown if ever smoked [facility] ([facility]) Smoking 12/16/2020 12:00:00 AM EDT Unknown if ever smoked comp leted Unknown if ever smoked [facility] ([facility]) Smoking 10/25/2020 12:00:00 AM EDT Unknown if ever smoked comp leted Unknown if ever smoked [facility] ([facility]) Smoking 10/12/2020 12:00:00 AM EDT Unknown if ever smoked comp leted Unknown if ever smoked [facility] ([facility]) Smoking 09/29/2020 12:00:00 AM EDT Unknown if ever smoked comp leted Unknown if ever smoked [facility] ([facility]) Smoking 09/27/2020 12:00:00 AM EDT Unknown if ever smoked comp leted Unknown if ever smoked [facility] ([facility]) Smoking 09/21/2020 12:00:00 AM EDT Unknown if ever smoked comp leted Unknown if ever smoked [facility] ([facility]) Vital Signs ID Date Data Source [id number] Name Value Range Interpretation Code Description Data Source(s) Body height 65 [in_i] 65 [in_i] [facility]) Diastolic blood pressure 99 mm[Hg] 99 mm[Hg] [facility] ([facility]) Body height 65 [in_i] 65 [in_i] [facility] ([facility]) Body mass index (BMI) [Ratio] 28.2 kg/m2 28.2 k g/m2 [facility] ([facility]) Systolic blood pressure 142 mm[Hg] 142 mm[Hg] A [facility] ([facility]) Body weight 2712 [oz_av] 2712 [oz_av] [facility] ([facility]) Diastolic blood pressure 99 mm[Hg] 99 mm[Hg] [facility] ([facility]) Body height 65 [in_i] 65 [in_i] [facility] ([facility]) Body mass index (BMI) [Ratio] 28.2 kg/m2 28.2 k g/m2 [facility] Systolic blood pressure 142 mm[Hg] 142 mm[Hg] A [facility]) Body weight 2712 [oz_av] 2712 [oz_av] [facility] ([facility])
[2021-01-05] MEDS ORDERED: OXAZEPAM 15 MG CAP PO ONE (13:45)
--- OUTSIDE RECORDS SUMMARY | 2021-01-05 14:45 | CCD ---
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 12/30/2020 12:00:00 AM EDT Unknown if ever smoked comp leted Unknown if ever smoked [facility] ([facility]) Smoking 12/16/2020 12:00:00 AM EDT Unknown if ever smoked comp leted Unknown if ever smoked [facility] ([facility]) Smoking 10/25/2020 12:00:00 AM EDT Unknown if ever smoked comp leted Unknown if ever smoked [facility] ([facility]) Smoking 10/12/2020 12:00:00 AM EDT Unknown if ever smoked comp leted Unknown if ever smoked [facility] ([facility]) Smoking 09/29/2020 12:00:00 AM EDT Unknown if ever smoked comp leted Unknown if ever smoked [facility] ([facility]) Smoking 09/27/2020 12:00:00 AM EDT Unknown if ever smoked comp leted Unknown if ever smoked [facility] ([facility]) Smoking 09/21/2020 12:00:00 AM EDT Unknown if ever smoked comp leted Unknown if ever smoked [facility] ([facility]) Vital Signs ID Date Data Source UNK Name Value Range Interpretation Code Description Data Source(s) Body height 65 [in_i] 65 [in_i] [facility]) Diastolic blood pressure 99 mm[Hg] 99 mm[Hg] ESPERANZA ([facility]) Diastolic blood pressure 99 mm[Hg] 99 mm[Hg] ESPERANZA ([facility]) Body height 65 [in_i] 65 [in_i] ESPERANZA ([facility]) Body mass index (BMI) [Ratio] 28.2 kg/m2 28.2 k g/m2 ESPERANZA ([facility]) Systolic blood pressure 142 mm[Hg] 142 mm[Hg] [facility] ([facility]) Body weight 2712 [oz_av] 2712 [oz_av] ESPERANZA ([facility]) Body height 65 [in_i] 65 [in_i] ESPERANZA ([facility]) Body mass index (BMI) [Ratio] 28.2 kg/m2 28.2 k g/m2 ESPERANZA ([facility]) Systolic blood pressure 142 mm[Hg] 142 mm[Hg] [facility] ([facility]) Body weight 2712 [oz_av] 2712 [oz_av] ESPERANZA ([facility])
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
[2021-01-05] MEDS ORDERED: NICOTINE 21MG/24HR 1 EA TRANSDERMAL TD ONE (21:10)
[2021-01-05 23:42] VITALS: BP 142/91
== END 2021-01-05 23:52 ==
LOC: M ED 13:27
DX: R45.851 Suicidal ideations (principal); R45.850 Homicidal ideations; F19.10 Other psychoactive substance abuse, uncomplicated; I10 Essential (primary) hypertension; F32.9 Major depressive disorder, single episode, unspecified; K21.9 Gastro-esophageal reflux disease without esophagitis; F10.10 Alcohol abuse, uncomplicated; F14.10 Cocaine abuse, uncomplicated; M54.2 Cervicalgia; M54.9 Dorsalgia, unspecified; F17.200 Nicotine dependence, unspecified, uncomplicated; Z79.899 Other long term (current) drug therapy; Z88.7 Allergy status to serum and vaccine

== ENCOUNTER 2021-02-17 11:13 | Inpatient (IN) | payer MEDICAID, OTHER ==
[~2021-02-17] VITALS: Ht 167.6 cm; Wt 83.1 kg
[~2021-02-17 11:13] MED LIST changes: -VENL150C43
[2021-02-17 13:15] LABS: HEMATOCRIT 45.8 % (42.0-52.0); HEMOGLOBIN 15.7 g/dl (13.5-17.5); MEAN CORPUSCULAR HEMOGLOBIN 30.5 pg (27.0-33.0); MEAN CORPUSCULAR HGB CONC 34.3 g/dl (32.0-36.5); MEAN CORPUSCULAR VOLUME 89.1 fl (80.0-96.0); PLATELET COUNT, AUTOMATED 227 10^3/uL (150-450); RED BLOOD COUNT 5.14 10^6/uL (4.30-6.10)
[2021-02-17 13:30] LABS: AMPHETAMINES LEVEL URINE NEGATIVE (NEGATIVE); BARBITURATES URINE NEGATIVE (NEGATIVE); BENZODIAZEPINES URINE POSITIVE (NEGATIVE); CANNABINOIDS URINE POSITIVE (NEGATIVE); COCAINE METABOLITE URINE POSITIVE (NEGATIVE); METHADONE URINE NEGATIVE (NEGATIVE); OPIATES URINE NEGATIVE (NEGATIVE); PHENCYCLIDINE URINE NEGATIVE (NEGATIVE)
[2021-02-17] MEDS ORDERED: HYDR50TA70 PO (13:39)
[2021-02-17] MEDS ORDERED: AMLO1TAB24 PO (13:39)
[2021-02-17] MEDS ORDERED: OLAN2.5T25 PO (13:39)
[2021-02-17] MEDS ORDERED: FOLI1TAB11 PO (13:39)
[2021-02-17] MEDS ORDERED: PANT40TA29 PO (13:39)
[2021-02-17] MEDS ORDERED: B-1100TA2 PO (13:39)
[2021-02-17] MEDS ORDERED: D31000TA2 PO (13:39)
[2021-02-17] MEDS ORDERED: HOME MED LIST COMPLETE! XX SCH (13:40)
[2021-02-17 13:46] LABS: RSV AMPLIFICATION NEGATIVE (NEGATIVE)
[2021-02-17 13:56] LABS: ACETAMINOPHEN LEVEL < 2.0 UG/ML (10.0-30.0); ALBUMIN 4.2 GM/DL (3.2-5.2); ALT/SGPT 32 U/L (12-78); BILIRUBIN,DIRECT 0.1 MG/DL (0.0-0.2); BILIRUBIN,TOTAL 0.4 MG/DL (0.2-1.0); BLOOD UREA NITROGEN 11 MG/DL (7-18); CALCIUM LEVEL 9.8 MG/DL (8.5-10.1); CARBON DIOXIDE LEVEL 27 MEQ/L (21-32); CHLORIDE LEVEL 105 MEQ/L (98-107); CREATININE FOR GFR 1.15 MG/DL (0.70-1.30); ETHYL ALCOHOL (ETHANOL) < 0.003 % (0.000-0.010); GLOMERULAR FILTRATION RATE > 60.0 (>60); GLUCOSE, FASTING 136 MG/DL (70-100); POTASSIUM SERUM 4.5 MEQ/L (3.5-5.1); SALICYLATE LEVEL 4.4 MG/DL (5.0-30.0); SODIUM LEVEL 139 MEQ/L (136-145); TOTAL PROTEIN 7.1 GM/DL (6.4-8.2)
[2021-02-17] MEDS ORDERED: ACETAMINOPHEN TAB 650MG DOSE (2X325MG) PO PRN (16:10)
[2021-02-17] MEDS ORDERED: traZODone 50 MG TAB PO PRN (16:10)
[2021-02-17] MEDS ORDERED: MAALOX 30 ML SUSP *UDC PO PRN (16:10)
[2021-02-17] MEDS ORDERED: MOM 30ML SUSPENSION UDC PO PRN (16:10)
[2021-02-17] MEDS: NICOTINE 21MG/24HR 1 EA TRANSDERMAL TD SCH (20:29)
[2021-02-17] MEDS: VENLAFAXINE **XR** 75MG CAPSULE PO SCH (20:30)
[2021-02-17] MEDS: hydrOXYzine 50 MG TAB PO PRN (20:30)
[2021-02-17] MEDS: OLANZapine ORAL DISINTEGRATING TAB 5MG PO PRN (20:30)
[2021-02-17] MEDS: VITAMIN D 1,000 INTERNATIONAL UNITS TABLET PO SCH (20:31)
[2021-02-17] MEDS ORDERED: OLANZapine 2.5MG TABLET PO SCH (21:00)
[2021-02-17 23:25] VITALS: BP 128/87
[2021-02-18] MEDS ORDERED: LORazepam 2 MG TAB PO PRN
[2021-02-18] MEDS ORDERED: THIAMINE 100 MG TAB PO SCH ×2 (00:13→09:00)
[2021-02-18 05:00] VITALS: BP 128/87
[2021-02-18 06:18] VITALS: BP 134/82
[2021-02-18] MEDS ORDERED: FOLIC ACID 1 MG TAB PO SCH (09:00)
[2021-02-18] MEDS ORDERED: NICOTINE 21MG/24HR 1 EA TRANSDERMAL TD SCH (09:00)
[2021-02-18] MEDS ORDERED: INFLUENZA QUADRIVALENT PF VACCINE 0.5ML SYRINGE IM ONE (09:00)
[2021-02-18] MEDS: NICOTINE 21MG/24HR 1 EA TRANSDERMAL TD SCH (09:22)
[2021-02-18] MEDS: PANTOPRAZOLE 40MG TAB (PROTONIX) PO SCH (09:22)
[2021-02-18] MEDS: FOLIC ACID 1 MG TAB PO SCH (09:23)
[2021-02-18] MEDS: MULTIVITAMINS/MINERALS THERAP 1 TAB PO SCH (09:23)
[2021-02-18] MEDS: THIAMINE 100 MG TAB PO SCH ×2 (09:23→21:36)
[2021-02-18] MEDS: amLODIPine 5 MG TAB PO SCH (09:23)
[2021-02-18 13:13] VITALS: BP 143/99
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
[2021-02-18] MEDS: hydrOXYzine 50 MG TAB PO PRN ×2 (15:57→21:36)
[2021-02-18 18:39] VITALS: BP 150/85
[2021-02-18 21:32] VITALS: BP 152/90
[2021-02-18] MEDS: OLANZapine 5 MG TAB PO SCH (21:36)
[2021-02-18] MEDS: VITAMIN D 1,000 INTERNATIONAL UNITS TABLET PO SCH (21:36)
[2021-02-18] MEDS: VENLAFAXINE **XR** 75MG CAPSULE PO SCH (21:36)
[2021-02-18] MEDS: MIRTAZAPINE 7.5MG PER 1/2 TABLET PO SCH (21:42)
[2021-02-19 06:00] VITALS: BP 122/83
[2021-02-19 09:08] VITALS: BP 141/90
[2021-02-19] MEDS: MULTIVITAMINS/MINERALS THERAP 1 TAB PO SCH (09:08)
[2021-02-19] MEDS: amLODIPine 5 MG TAB PO SCH (09:08)
[2021-02-19] MEDS: PANTOPRAZOLE 40MG TAB (PROTONIX) PO SCH (09:08)
[2021-02-19] MEDS: FOLIC ACID 1 MG TAB PO SCH (09:08)
[2021-02-19] MEDS: OLANZapine 5 MG TAB PO SCH ×2 (09:08→21:15)
[2021-02-19] MEDS: THIAMINE 100 MG TAB PO SCH ×2 (09:08→21:15)
[2021-02-19] MEDS: NICOTINE 21MG/24HR 1 EA TRANSDERMAL TD SCH (09:09)
--- NOTE | 2021-02-19 12:21 | ECGEPIP ---
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
--- NOTE | 2021-02-19 12:28 | HPEPDOC ---
General Date of Admission Feb 17, 2021 at 16:09 Date of Service: Feb 19, 2021 Chief Complaint The patient is a 40-year-old male admitted with a reason for visit of Unspecified Depressive D/O; Polysubstance Abuse. Source: Patient History of Present Illness 40-year-old male with history of polysubstance abuse, alcohol abuse, homeless, generalized anxiety disorder, PTSD, depression, ADHD, GERD, hiatal hernia, asthma was admitted to [facility] for depression. He has been examined here today for medical history and physical. He says that he has generalized body aches as he is withdrawing. No other acute complaints. Home Medications Scheduled Amlodipine Besylate (Amlodipine Besylate) 5 Mg Tablet, 5 MG PO DAILY, (Reported) Cholecalciferol (Vitamin D3) (Vitamin D3) 1,000 Unit Tablet, 1,000 UNITS PO QHS, (Reported) Folic Acid (Folic Acid) 1 Mg Tablet, 1 MG PO DAILY, (Reported) Olanzapine (Olanzapine) 2.5 Mg Tablet, 2.5 MG PO QHS, (Reported) Pantoprazole Sodium (Pantoprazole Sodium) 40 Mg Tablet.dr, 40 MG PO DAILY, (Reported) Thiamine HCl (Vitamin B-1) 100 Mg Tablet, 100 MG PO DAILY, (Reported) Venlafaxine HCl (Venlafaxine HCl ER) 150 Mg Cap.er.24h, 150 MG PO QHS, (Reported) Scheduled PRN Hydroxyzine HCl (Hydroxyzine HCl) 50 Mg Tablet, 50 MG PO TID PRN for ANXIETY, (Reported) Allergies Coded Allergies: tetanus toxoid, adsorbed (Verified Allergy, Unknown, "coma", 03/10/20) Past Medical History Medical History GERD Hiatal hernia Asthma Allergies History of GI bleed in 2017 Chronic back pain and neck pain Polysubstance abuse Generalized anxiety disorder ADHD PTSD Panic disorder Depression Family History Significant Family History: Cancer, Heart disease, Hypertension Mother had brain and lung cancer Depression and anxiety in several members Alcoholism on both sides of the family Social History * Smoker: current smoker Alcohol: heavy Drugs: cocaine, other (Opioids, benzodiazepines, barbiturates) A-FIB/CHADSVASC A-FIB History Current/History of A-Fib/PAF?: No Age/Risk Factor Scoring CHADSVASC: CHADSVASC Response (Comments) Value Age Risk Factor Age < 65 years old 0 Gender Risk Factor Male 0 Hx of CHF No 0 Hx of HTN Yes 1 Hx of Stroke/TIA/or VTE No 0 Hx of Diabetes No 0 Hx of Vascular Disease No 0 Total 1 Review of Systems Constitutional: Reports: Fatigue; Denies: Chills, Fever, Night Sweats Eyes: Denies: Pain, Vision change ENT: Denies: Head Aches, Ear Pain, Dysphagia Skin: Denies: Rash, Lesions, Breakdown Pulmonary: Denies: Dyspnea, Cough Cardiovascular: Denies: Chest Pain, Palpitations, Orthopnea, Paroxysmal Noc. Dyspnea, Lt Headedness Gastrointestinal: Denies: Nausea, Vomiting, Abdominal Pain, Diarrhea Genitourinary: Denies: Dysuria, Frequency, Incontinence Musculoskeletal: Reports: Muscle Pain Physical Examination General Exam: Positive: Alert, Cooperative, No Acute Distress Eye Exam: Positive: PERRLA, Conjunctiva & lids normal, EOMI; Negative: Sclera icteric ENT Exam: Positive: Atraumatic, Mucous membr. moist/pink, Pharynx Normal Neck Exam: Positive: Supple; Negative: JVD, thyromegaly Chest Exam: Positive: Clear to auscultation, Normal air movement Abdomen Exam: Positive: Normal bowel sounds, Soft; Negative: Tenderness Psych Exam: Positive: Oriented x 3 Vital Signs Vital Signs Date Time Temp Pulse Resp B/P (MAP) Pulse Ox O2 Delivery O2 Flow Rate FiO2 02/19/21 06:00 98.0 80 16 122/83 (96) 98 02/18/21 06:18 Room Air Laboratory Data Labs 24H Laboratory Tests 2 02/18/21 15:16: Thyroid Stimulating Hormone (TSH) 1.320 Assessment/Plan 40-year-old male with history of polysubstance abuse, alcohol abuse, homeless, generalized anxiety disorder, PTSD, depression, ADHD, GERD, hiatal hernia, asthma was admitted to [facility] for depression. He has been examined here today for medical history and physical. Depression/PTSD/polysubstance abuse as per psychiatry. No acute medical issues at this time. Plan / VTE VTE Prophylaxis Ordered?: No Enma Carrillo MD Feb 19, 2021 09:16
[2021-02-19 18:00] VITALS: BP 180/80
[2021-02-19] MEDS: **hydrALAZINE HCL** 25 MG TAB PO SCH ×2 (18:19→19:38)
[2021-02-19 19:15] LABS: CK-MB VALUE MASS < 1.0 NG/ML (<3.6); CPK CREATINE PHOSPHOKINASE 66 U/L (39-308); MB/CK RELATIVE INDEX 1.52 (< OR =4)
[2021-02-19] MEDS: OLANZapine ORAL DISINTEGRATING TAB 5MG PO PRN (19:19)
[2021-02-19] MEDS ORDERED: PRAZOSIN 1 MG CAP PO SCH (21:00)
[2021-02-19] MEDS: MIRTAZAPINE 7.5MG PER 1/2 TABLET PO SCH (21:15)
[2021-02-19] MEDS: VENLAFAXINE **XR** 75MG CAPSULE PO SCH (21:15)
[2021-02-19] MEDS: VITAMIN D 1,000 INTERNATIONAL UNITS TABLET PO SCH (21:16)
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
[2021-02-20] MEDS: **hydrALAZINE HCL** 25 MG TAB PO SCH ×4 (06:00→18:00)
[2021-02-20 06:46] VITALS: BP 122/90
[2021-02-20] MEDS: THIAMINE 100 MG TAB PO SCH ×2 (09:41→20:24)
[2021-02-20] MEDS: PANTOPRAZOLE 40MG TAB (PROTONIX) PO SCH (09:41)
[2021-02-20] MEDS: amLODIPine 5 MG TAB PO SCH (09:42)
[2021-02-20] MEDS: OLANZapine 5 MG TAB PO SCH ×2 (09:42→20:24)
[2021-02-20] MEDS: FOLIC ACID 1 MG TAB PO SCH (09:42)
[2021-02-20] MEDS: NICOTINE 21MG/24HR 1 EA TRANSDERMAL TD SCH (09:42)
[2021-02-20] MEDS: MULTIVITAMINS/MINERALS THERAP 1 TAB PO SCH (09:42)
[2021-02-20] MEDS: hydrOXYzine 25 MG TAB PO PRN ×2 (11:36→20:23)
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
[2021-02-20] MEDS ORDERED: LORazepam 0.5 MG TAB PO ONE (13:30)
--- NOTE | 2021-02-20 15:30 | ECGEPIP ---
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 No significant change compared with 02/18/2021. Electronically Signed on 02-20-2021 15:29:42 EST by Rian Fong
[2021-02-20 18:55] VITALS: BP 132/85
[2021-02-20] MEDS: PRAZOSIN 1 MG CAP PO SCH (20:23)
[2021-02-20] MEDS: MIRTAZAPINE 7.5MG PER 1/2 TABLET PO SCH (20:24)
[2021-02-20] MEDS: VENLAFAXINE **XR** 75MG CAPSULE PO SCH (20:24)
[2021-02-20] MEDS: VITAMIN D 1,000 INTERNATIONAL UNITS TABLET PO SCH (20:24)
[2021-02-21] MEDS: **hydrALAZINE HCL** 25 MG TAB PO SCH ×5 (00:27→23:11)
[2021-02-21 06:36] VITALS: BP 136/90
[2021-02-21] MEDS: amLODIPine 5 MG TAB PO SCH (08:58)
[2021-02-21] MEDS: FOLIC ACID 1 MG TAB PO SCH (08:58)
[2021-02-21] MEDS: hydrOXYzine 25 MG TAB PO PRN ×2 (08:59→17:16)
[2021-02-21] MEDS: NICOTINE 21MG/24HR 1 EA TRANSDERMAL TD SCH (08:59)
[2021-02-21] MEDS: OLANZapine 5 MG TAB PO SCH ×2 (08:59→22:05)
[2021-02-21] MEDS: PANTOPRAZOLE 40MG TAB (PROTONIX) PO SCH (08:59)
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
[2021-02-21] MEDS: OLANZapine ORAL DISINTEGRATING TAB 5MG PO PRN ×2 (12:10→18:18)
[2021-02-21 16:31] VITALS: BP 141/94
[2021-02-21] MEDS: MIRTAZAPINE 7.5MG PER 1/2 TABLET PO SCH (22:05)
[2021-02-21] MEDS: VENLAFAXINE **XR** 75MG CAPSULE PO SCH (22:05)
[2021-02-21] MEDS: VITAMIN D 1,000 INTERNATIONAL UNITS TABLET PO SCH (22:05)
[2021-02-21] MEDS: PRAZOSIN 1 MG CAP PO SCH (22:06)
[2021-02-22 06:27] VITALS: BP 145/94
[2021-02-22] MEDS: **hydrALAZINE HCL** 25 MG TAB PO SCH ×3 (06:30→17:53)
[2021-02-22] MEDS ORDERED: FOLIC ACID 1 MG TAB PO SCH (09:00)
[2021-02-22] MEDS: FOLIC ACID 1 MG TAB PO SCH (09:33)
[2021-02-22] MEDS: hydrOXYzine 25 MG TAB PO PRN ×2 (09:33→15:59)
[2021-02-22] MEDS: amLODIPine 5 MG TAB PO SCH (09:33)
[2021-02-22] MEDS: PANTOPRAZOLE 40MG TAB (PROTONIX) PO SCH (09:33)
[2021-02-22] MEDS: NICOTINE 21MG/24HR 1 EA TRANSDERMAL TD SCH (09:34)
[2021-02-22] MEDS: OLANZapine 5 MG TAB PO SCH ×2 (09:34→20:25)
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
[2021-02-22] MEDS: THIAMINE 100 MG TAB PO SCH ×2 (09:55→21:49)
[2021-02-22] MEDS: MULTIVITAMINS/MINERALS THERAP 1 TAB PO SCH (09:55)
[2021-02-22] MEDS: busPIRone 5 MG TAB PO SCH ×2 (15:03→21:49)
[2021-02-22 16:23] VITALS: BP 155/96
[2021-02-22 17:55] VITALS: BP 150/100
[2021-02-22] MEDS: LORazepam 2 MG TAB PO PRN (17:57)
[2021-02-22] MEDS: VITAMIN D 1,000 INTERNATIONAL UNITS TABLET PO SCH (21:49)
[2021-02-22] MEDS: VENLAFAXINE **XR** 75MG CAPSULE PO SCH (21:49)
[2021-02-22] MEDS: MIRTAZAPINE 15 MG TAB PO SCH (21:49)
[2021-02-22] MEDS: PRAZOSIN 1 MG CAP PO SCH (21:51)
[2021-02-22 22:08] VITALS: BP 143/94
[2021-02-23] MEDS: **hydrALAZINE HCL** 25 MG TAB PO SCH ×4 (00:40→17:35)
[2021-02-23 06:08] VITALS: BP 130/73
[2021-02-23] MEDS: busPIRone 5 MG TAB PO SCH (08:59)
[2021-02-23] MEDS: THIAMINE 100 MG TAB PO SCH ×2 (08:59→21:15)
[2021-02-23] MEDS: NICOTINE 21MG/24HR 1 EA TRANSDERMAL TD SCH (08:59)
[2021-02-23] MEDS: FOLIC ACID 1 MG TAB PO SCH (08:59)
[2021-02-23] MEDS: OLANZapine 5 MG TAB PO SCH ×2 (08:59→21:14)
[2021-02-23] MEDS: PANTOPRAZOLE 40MG TAB (PROTONIX) PO SCH (08:59)
[2021-02-23] MEDS: MULTIVITAMINS/MINERALS THERAP 1 TAB PO SCH (08:59)
[2021-02-23] MEDS: amLODIPine 5 MG TAB PO SCH (09:00)
[2021-02-23 09:01] VITALS: BP 160/100
[2021-02-23] MEDS: LORazepam 2 MG TAB PO PRN (09:03)
[2021-02-23 11:39] VITALS: BP 132/91
[2021-02-23] MEDS: OLANZapine ORAL DISINTEGRATING TAB 5MG PO PRN (11:43)
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
[2021-02-23] MEDS: hydrOXYzine 25 MG TAB PO PRN ×2 (14:47→21:15)
[2021-02-23] MEDS: busPIRone 10 MG TAB PO SCH ×2 (15:17→21:15)
[2021-02-23 16:21] VITALS: BP 141/94
[2021-02-23 18:29] VITALS: BP 132/80
[2021-02-23] MEDS: VENLAFAXINE **XR** 75MG CAPSULE PO SCH (21:14)
[2021-02-23] MEDS: PRAZOSIN 1 MG CAP PO SCH (21:14)
[2021-02-23] MEDS: VITAMIN D 1,000 INTERNATIONAL UNITS TABLET PO SCH (21:15)
[2021-02-23] MEDS: MIRTAZAPINE 15 MG TAB PO SCH (22:40)
[2021-02-24 05:12] VITALS: BP 138/98
[2021-02-24] MEDS: **hydrALAZINE HCL** 25 MG TAB PO SCH ×3 (05:16→12:27)
[2021-02-24] MEDS: LORazepam 2 MG TAB PO PRN (05:17)
[2021-02-24 07:12] VITALS: BP 132/88
[2021-02-24] MEDS ORDERED: NALTREXONE 50 MG TAB PO SCH (09:00)
[2021-02-24] MEDS: MULTIVITAMINS/MINERALS THERAP 1 TAB PO SCH (09:25)
[2021-02-24] MEDS: busPIRone 10 MG TAB PO SCH (09:25)
[2021-02-24] MEDS: THIAMINE 100 MG TAB PO SCH (09:25)
[2021-02-24] MEDS: NICOTINE 21MG/24HR 1 EA TRANSDERMAL TD SCH (09:25)
[2021-02-24] MEDS: amLODIPine 5 MG TAB PO SCH (09:26)
[2021-02-24] MEDS: PANTOPRAZOLE 40MG TAB (PROTONIX) PO SCH (09:26)
[2021-02-24] MEDS: OLANZapine 5 MG TAB PO SCH (09:26)
[2021-02-24] MEDS: FOLIC ACID 1 MG TAB PO SCH (09:29)
[2021-02-24] MEDS ORDERED: HYDR50TA70 PO (10:09)
[2021-02-24] MEDS ORDERED: VENL150C43 PO (10:09)
[2021-02-24] MEDS ORDERED: NICO21PAT TD (10:09)
[2021-02-24] MEDS ORDERED: MIRT-62 PO (10:09)
[2021-02-24] MEDS ORDERED: BUSP10TA PO (10:09)
[2021-02-24] MEDS ORDERED: MINI1CAP PO (10:09)
[2021-02-24] MEDS ORDERED: OLAN1TAB16 PO (10:09)
[2021-02-24] MEDS ORDERED: NALT50TA4 PO (10:09)
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
[2021-02-24 12:27] VITALS: BP 150/92
== END 2021-02-24 13:20 | disposition home or self-care (01) | DRG 751 ==
LOC: M ED 11:13 → M ED INP 16:09 → M PSY 22:39
PROVIDERS: ADMIT Student in an Organized Health Care Education/Training Program; ATTEND Student in an Organized Health Care Education/Training Program
DX: F33.1 Major depressive disorder, recurrent, moderate (principal); R45.851 Suicidal ideations; F41.1 Generalized anxiety disorder; F43.10 Post-traumatic stress disorder, unspecified; F41.0 Panic disorder [episodic paroxysmal anxiety]; F10.139 Alcohol abuse with withdrawal, unspecified; F14.10 Cocaine abuse, uncomplicated; F12.10 Cannabis abuse, uncomplicated; F17.200 Nicotine dependence, unspecified, uncomplicated; F60.89 Other specific personality disorders; F19.10 Other psychoactive substance abuse, uncomplicated; K21.9 Gastro-esophageal reflux disease without esophagitis; J45.909 Unspecified asthma, uncomplicated; K44.9 Diaphragmatic hernia without obstruction or gangrene; Z62.811 Personal history of psychological abuse in childhood; Z91.410 Personal history of adult physical and sexual abuse; Z59.00 Homelessness unspecified; Z79.899 Other long term (current) drug therapy; Z88.7 Allergy status to serum and vaccine

== ENCOUNTER 2021-07-23 18:03 | Emergency (ER) | payer MEDICAID, OTHER ==
[~2021-07-23] VITALS: Ht 167.6 cm; Wt 87.7 kg
[~2021-07-23 18:03] MED LIST changes: +AMLO1TAB24 PO; +B-1100TA2 PO; +BUSP10TA PO; +FOLI1TAB11 PO; +HYDR50TA70 PO; +MINI1CAP PO; +MIRT-62 PO; +NALT50TA4 PO; +NICO21PAT TD; +OLAN1TAB16 PO; +OLAN2.5T25 PO; +VITA100093 PO
[2021-07-23] MEDS ORDERED: ARIP1TAB4 (18:14)
[2021-07-23] MEDS ORDERED: GABA-1171 (18:14)
[2021-07-23] MEDS ORDERED: LIDOCAINE VISCOUS 2% SOLN 15ML UDC SSP ONE ×2 (19:45→20:50)
[2021-07-23] MEDS ORDERED: AUGMENTIN 875 MG TAB PO ONE (19:45)
[2021-07-23] MEDS ORDERED: LIDO2SOL17 PO (20:42)
[2021-07-23] MEDS ORDERED: PERI12LIQ PO (20:43)
[2021-07-23] MEDS ORDERED: AMOX875T2 PO (20:44)
[2021-07-23 20:53] VITALS: BP 133/67
== END 2021-07-23 20:54 | disposition home or self-care (01) ==
LOC: M ED 18:03
DX: K08.89 Other specified disorders of teeth and supporting structures (principal); K02.9 Dental caries, unspecified; F17.200 Nicotine dependence, unspecified, uncomplicated; Z88.7 Allergy status to serum and vaccine

== ENCOUNTER → 2023-05-09 | Outpatient (CLI) | payer OTHER, SELFPAY ==
[~2023-05-09] MED LIST changes: +AMOX875T2 PO; +ARIP1TAB4; +DICL100G10 TOP; -DICL1GEL3 TOP; +GABA-1171; +LIDO15SO8 PO; -MIRT-62 PO; +MIRT-88 PO; +PERI12LIQ PO
[2023-05-09 11:21] LABS: BASO # 0.1 10^3/uL (0.0-0.2); BASO % 1.2 % (0.0-1.0); EOS # 0.3 10^3/uL (0.0-0.5); EOS % 3.7 % (0.0-3.0); HEMATOCRIT 44.9 % (42.0-52.0); HEMOGLOBIN 15.1 g/dl (13.5-17.5); LYMPH # 1.7 10^3/uL (1.5-5.0); LYMPH % 22.4 % (24.0-44.0); MEAN CORPUSCULAR HEMOGLOBIN 30.1 pg (27.0-33.0); MEAN CORPUSCULAR HGB CONC 33.6 g/dl (32.0-36.5); MEAN CORPUSCULAR VOLUME 89.6 fl (80.0-96.0); MONO # 0.6 10^3/uL (0.0-0.8); MONO % 7.9 % (2.0-8.0); NEUTROPHILS # 4.9 10^3/uL (1.5-8.5); NEUTROPHILS % 64.1 % (36.0-66.0); PLATELET COUNT, AUTOMATED 264 10^3/uL (150-450); RED BLOOD COUNT 5.01 10^6/uL (4.30-6.10); WHITE BLOOD COUNT 7.6 10^3/uL (4.0-10.0)
[2023-05-09 11:32] LABS: HEMOGLOBIN A1c 5.5 % (4.0-6.0)
[2023-05-09 11:47] LABS: ALBUMIN 4.4 G/DL (3.2-5.2); ALKALINE PHOSPHATASE 95 U/L (46-116); ALT/SGPT 44 U/L (7.0-40); AST/SGOT 21 U/L (<34); BILIRUBIN,TOTAL 0.2 MG/DL (0.3-1.2); BLOOD UREA NITROGEN 13 MG/DL (9-23); CALCIUM LEVEL 8.4 MG/DL (8.5-10.1); CARBON DIOXIDE LEVEL 30 MMOL/L (20-31); CHLORIDE LEVEL 106 MMOL/L (98-107); CHOLESTEROL LEVEL 192 MG/DL (<200); CHOLESTEROL RISK RATIO 5.17 (<5); CREATININE FOR GFR 1.01 MG/DL (0.70-1.30); GLOMERULAR FILTRATION RATE > 60.0 (>60); GLUCOSE, FASTING 95 MG/DL (60-100); HDL CHOLESTEROL 37.1 MG/DL (>40); LDL CHOLESTEROL 107.1 MG/DL (<100); NON-HDL-C 154.9 MG/DL; POTASSIUM SERUM 4.1 MMOL/L (3.5-5.1); SODIUM LEVEL 139 MMOL/L (136-145); TOTAL PROTEIN 6.9 G/DL (5.7-8.2); TRIGLYCERIDES LEVEL 239 MG/DL (<150)
[2023-05-09 11:49] LABS: THYROID STIMULATING HORMONE 2.918 uIU/ML (0.55-4.78)
[2023-05-09 13:36] LABS: APPEARANCE, URINE HAZY (CLEAR); BACTERIA, URINE AUTO NEGATIVE (NEGATIVE); BILIRUBIN, URINE AUTO NEGATIVE (NEGATIVE); BLOOD, URINE BLOOD NEGATIVE (NEGATIVE); CALCIUM OXALATE CRYSTALS MODERATE; COLOR, URINE YELLOW (YELLOW); GLUCOSE, URINE (UA) AUTO NEGATIVE (NEGATIVE); KETONE, URINE AUTO TRACE mg/dL (NEGATIVE); LEUKOCYTE ESTERASE, URINE AUTO NEGATIVE (NEGATIVE); MUCUS, URINE SMALL (NEGATIVE); NITRITE, URINE AUTO NEGATIVE (NEGATIVE); PROTEIN, URINE AUTO 1+ mg/dL (NEGATIVE); RBC, URINE AUTO 0 /HPF (0-3); SPECIFIC GRAVITY URINE AUTO 1.025 (1.002-1.035); SQUAMOUS EPITHELIAL CELL UR AU 0 /HPF (0-6); WBC, URINE AUTO 1 /HPF (0-3)
== END ==
LOC: M LAB 10:33
PROVIDERS: ATTEND Specialist
DX: F33.1 Major depressive disorder, recurrent, moderate (principal)

== ENCOUNTER 2023-06-30 06:35 | Emergency (ER) | payer MEDICAID, SELFPAY ==
[~2023-06-30] VITALS: Ht 167.6 cm; Wt 83.7 kg
[2023-06-30] MEDS ORDERED: HYDR-3713 PO (07:46)
[2023-06-30] MEDS: KETOROLAC 60MG 2ML VIAL IM ONE (07:54)
[2023-06-30] MEDS: NORCO, ANEXSIA 5/325MG TABLET (HYDROcodone/ACETAMINOPHEN) PO ONE (07:55)
[2023-06-30 08:30] VITALS: BP 126/87; TEMP 97.6; O2SAT 98
== END 2023-06-30 08:20 | disposition home or self-care (01) ==
LOC: M ED 06:35
DX: K03.81 Cracked tooth (principal); K08.89 Other specified disorders of teeth and supporting structures; I10 Essential (primary) hypertension; J45.909 Unspecified asthma, uncomplicated; K21.9 Gastro-esophageal reflux disease without esophagitis; F43.10 Post-traumatic stress disorder, unspecified; F17.210 Nicotine dependence, cigarettes, uncomplicated; F10.10 Alcohol abuse, uncomplicated; Z88.8 Allergy status to other drugs, medicaments and biological substances; Z79.1 Long term (current) use of non-steroidal anti-inflammatories (NSAID); Z79.2 Long term (current) use of antibiotics; Z79.899 Other long term (current) drug therapy
CPT/HCPCS: 96372; 99282; 99283; J1885

== ENCOUNTER 2023-07-14 09:11 | Emergency (ER) | payer MEDICAID, OTHER ==
[~2023-07-14] VITALS: Ht 167.6 cm; Wt 84.2 kg
[2023-07-14 09:11] VITALS: BP 136/99; TEMP 96.7; O2SAT 93
[~2023-07-14 09:11] MED LIST changes: +HYDR-3713 PO
[2023-07-14] MEDS ORDERED: AMOX875T2 PO (11:26)
[2023-07-14] MEDS: ACETAMINOPHEN 500 MG TAB PO ONE (13:12)
[2023-07-14] MEDS ORDERED: MELO7.5T35 PO (13:16)
[2023-07-14] MEDS: KETOROLAC 30 MG/ML 1ML VIAL IV ONE (13:19)
== END 2023-07-14 13:29 | disposition home or self-care (01) ==
LOC: M ED 09:11
DX: K08.89 Other specified disorders of teeth and supporting structures (principal); F17.210 Nicotine dependence, cigarettes, uncomplicated; F12.10 Cannabis abuse, uncomplicated; Z88.8 Allergy status to other drugs, medicaments and biological substances; Z79.2 Long term (current) use of antibiotics; Z79.899 Other long term (current) drug therapy
CPT/HCPCS: 96374; 99282; J1885

== ENCOUNTER 2023-12-27 00:57 | Emergency (ER) | payer OTHER ==
[~2023-12-27] VITALS: Ht 167.6 cm; Wt 78.9 kg
[~2023-12-27 00:57] MED LIST changes: +MELO7.5T35 PO; -OLAN2.5T25 PO; +OLAN2.5T53 PO; +ONDA-282 PO; -ONDA4TAB6 PO
[2023-12-27 01:00] VITALS: BP 132/92; TEMP 97.3; O2SAT 100
[2023-12-27] MEDS ORDERED: VENL75CA47 PO (01:10)
== END 2023-12-27 02:20 | disposition left against medical advice (07) ==
LOC: M ED 00:57
DX: Z53.21 Procedure and treatment not carried out due to patient leaving prior to being seen by health care provider (principal)

== ENCOUNTER 2024-04-30 14:39 | Emergency (ER) | payer OTHER ==
[~2024-04-30] VITALS: Ht 167.6 cm; Wt 83.1 kg
[~2024-04-30 14:39] MED LIST changes: +VENL75CA47 PO
[2024-04-30] MEDS ORDERED: IBUP200C90 PO (14:56)
[2024-04-30] MEDS: ACETAMINOPHEN 500 MG TAB PO ONE (16:55)
[2024-04-30] MEDS: LIDOCAINE VISCOUS 2% SOLN 15ML UDC TOP ONE (16:55)
[2024-04-30] MEDS ORDERED: LIDOCAINE VISCOUS 2% SOLN 15ML UDC As Ordered ONE (16:57)
[2024-04-30] MEDS ORDERED: AMOX875T2 PO (16:57)
[2024-04-30 17:17] VITALS: BP 128/89; TEMP 97.4; O2SAT 100
== END 2024-04-30 17:21 | disposition home or self-care (01) ==
LOC: M ED 14:39
DX: K04.7 Periapical abscess without sinus (principal); F17.210 Nicotine dependence, cigarettes, uncomplicated; F12.10 Cannabis abuse, uncomplicated; Z88.7 Allergy status to serum and vaccine; Z79.1 Long term (current) use of non-steroidal anti-inflammatories (NSAID); Z79.2 Long term (current) use of antibiotics; Z79.899 Other long term (current) drug therapy

== ENCOUNTER 2024-06-13 13:51 | Emergency (ER) | payer OTHER ==
[~2024-06-13] VITALS: Ht 167.6 cm; Wt 77.9 kg
[~2024-06-13 13:51] MED LIST changes: +IBUP200C90 PO
[2024-06-13] MEDS ORDERED: IBUP80TA (14:04)
[2024-06-13] MEDS ORDERED: AMOX500T2 (14:04)
[2024-06-13] MEDS ORDERED: AMOX875T2 PO (14:48)
[2024-06-13] MEDS: AUGMENTIN 875 MG TAB PO ONE (14:48)
[2024-06-13] MEDS ORDERED: IBUP-1022 PO (14:48)
[2024-06-13] MEDS: KETOROLAC 30 MG/ML 1ML VIAL IM ONE (14:51)
[2024-06-13] MEDS ORDERED: HYDR-3713 PO (14:58)
[2024-06-13 15:00] VITALS: BP 142/108; TEMP 97.4; O2SAT 100
== END 2024-06-13 15:08 | disposition home or self-care (01) ==
LOC: M ED 13:51
DX: G89.18 Other acute postprocedural pain (principal); Z88.7 Allergy status to serum and vaccine; Z79.1 Long term (current) use of non-steroidal anti-inflammatories (NSAID); Z79.2 Long term (current) use of antibiotics
CPT/HCPCS: 96372; 99283; J1885

== ENCOUNTER 2024-07-10 15:57 | Emergency (ER) | payer OTHER ==
[~2024-07-10] VITALS: Ht 167.6 cm; Wt 74.4 kg
[~2024-07-10 15:57] MED LIST changes: +AMOX500T2; +IBUP-1022 PO; +IBUP80TA
[2024-07-10 16:55] LABS: HEMATOCRIT 41.7 % (42.0-52.0); HEMOGLOBIN 14.4 g/dl (13.5-17.5); MEAN CORPUSCULAR HEMOGLOBIN 29.8 pg (27.0-33.0); MEAN CORPUSCULAR HGB CONC 34.5 g/dl (32.0-36.5); MEAN CORPUSCULAR VOLUME 86.2 fl (80.0-96.0); PLATELET COUNT, AUTOMATED 284 10^3/uL (150-450); RED BLOOD COUNT 4.84 10^6/uL (4.30-6.10); WHITE BLOOD COUNT 10.6 10^3/uL (4.0-10.0)
[2024-07-10] MEDS: NS (Normal Saline) 0.9% 1,000 ML IV ONE ×2 (16:55→22:37)
[2024-07-10] MEDS: LORazepam 2 MG/ML 1ML VIAL IV STA (16:55)
[2024-07-10 17:19] LABS: ETHYL ALCOHOL (ETHANOL) < 0.003 % (0.000-0.010)
[2024-07-10 17:20] LABS: BLOOD UREA NITROGEN 11 MG/DL (9-23); CALCIUM LEVEL 10.2 MG/DL (8.5-10.1); CARBON DIOXIDE LEVEL 25 MMOL/L (20-31); CHLORIDE LEVEL 100 MMOL/L (98-107); CREATININE FOR GFR 1.01 MG/DL (0.70-1.30); GLOMERULAR FILTRATION RATE > 90.0 (>60); GLUCOSE, FASTING 126 MG/DL (60-100); POTASSIUM SERUM 3.8 MMOL/L (3.5-5.1); SODIUM LEVEL 138 MMOL/L (136-145)
[2024-07-10 17:21] LABS: SALICYLATE LEVEL 6.8 MG/DL (<30)
[2024-07-10 17:23] LABS: THYROID STIMULATING HORMONE 1.355 uIU/ML (0.55-4.78)
[2024-07-10 17:25] LABS: CPK CREATINE PHOSPHOKINASE 496 U/L (46-171)
[2024-07-10] MEDS: ACETAMINOPHEN 325 MG TAB PO ONE (22:37)
[2024-07-11 00:43] LABS: BARBITURATES URINE NEGATIVE (NEGATIVE); BENZODIAZEPINES URINE NEGATIVE (NEGATIVE); METHADONE URINE NEGATIVE (NEGATIVE); OPIATES URINE NEGATIVE (NEGATIVE); PHENCYCLIDINE URINE NEGATIVE (NEGATIVE)
[2024-07-11 00:44] LABS: AMPHETAMINES LEVEL URINE POSITIVE (NEGATIVE); CANNABINOIDS URINE POSITIVE (NEGATIVE); COCAINE METABOLITE URINE POSITIVE (NEGATIVE)
[2024-07-11 00:58] VITALS: BP 122/63; TEMP 98; O2SAT 98
== END 2024-07-11 01:17 | disposition short-term general hospital (02) ==
LOC: M ED 15:57
DX: F15.10 Other stimulant abuse, uncomplicated (principal); I10 Essential (primary) hypertension; J45.909 Unspecified asthma, uncomplicated; K21.9 Gastro-esophageal reflux disease without esophagitis; F32.A Depression, unspecified; Z88.7 Allergy status to serum and vaccine; Z79.1 Long term (current) use of non-steroidal anti-inflammatories (NSAID); Z79.2 Long term (current) use of antibiotics
CPT/HCPCS: 80048; 80143; 80307; 82077; 82550; 84443; 85027; 93005; 93041; 94760; 96361; 96374; 99285; J2060